=== PATIENT | female | born 1930 | race Caucasian/White ===

== ENCOUNTER 2017-04-04 11:13 | Inpatient (IN) | payer MEDICARE, MEDICAID ==
[~2017-04-04] VITALS: Ht 154.9 cm; Wt 81.6 kg
[~2017-04-04 11:13] MED LIST: ATOR20TA64 PO; CALC-1036 PO; CARB-61 PO; ESCI10TA PO; FERR-57 PO; FOLI-43 PO; FOLI0.8T2 PO; FURO20TA4 PO; INSU100V9 SUBCUT; INSU10VI4 SUBCUT; LEVO88TA5 PO; PREG75CA PO; SODI15OR3 PO
[2017-04-04 11:20] VITALS: BP 132/61; PULSE 67; RESP 20; TEMP 97.8; O2SAT 99
--- NOTE | 2017-04-04 11:27 | NUR ---
Pt placed to ER bed 04. Report given to DARSHANA Hill.
--- NOTE | 2017-04-04 11:27 | NUR ---
Kishor dodge in ED - 04/04/17 at 1136 by TAYLORJ Pt placed to ER bed 03, to jer, report given to DARSHANA Hill.
--- NOTE | 2017-04-04 11:30 | NUR ---
PER PATIENT SHE HAD BEEN HAVING DYSURIA AND ABDOMINAL PAIN 5 DAYS AGO AND DIARRHEA 3 DAYS AGO.DAUGHTER AT BEDSIDE.NO COMPLAIN OF PAIN AT THIS TIME.ABDOMEN IS SOFT;NO DISTENTION.ACTIVE BOWEL SOUNDS THROUGHOUT.NO OTHER COMPLAIN /INJURIES PER PATIENT OR NOTED
[2017-04-04 11:54] LABS: BASOPHILS % (AUTO) 0.2 % (0.0-2.0); EOSINOPHILS # (AUTO) 0.3 K/uL (0.0-0.4); EOSINOPHILS % (AUTO) 3.3 % (0.0-4.0); HEMATOCRIT 31.9 % (36-48); HEMOGLOBIN 10.4 g/dL (12.0-16.0); LYMPHOCYTES # (AUTO) 2.1 K/uL (1.0-5.5); LYMPHOCYTES % (AUTO) 22.4 % (20.5-51.5); MEAN CORPUSCULAR HEMOGLOBIN 30 pg (27-31); MEAN CORPUSCULAR HGB CONC 33 % (32-36); MEAN CORPUSCULAR VOLUME 93 fL (79.0-98.0); MONOCYTES # (AUTO) 0.5 K/uL (0.0-1.0); MONOCYTES % (AUTO) 5.4 % (1.7-9.3); NEUTROPHILS # (AUTO) 6.6 K/uL (1.8-7.7); NEUTROPHILS % (AUTO) 68.7 % (40.0-70.0); PLATELET COUNT (AUTO) 174 K/uL (130-430); RED BLOOD CELL COUNT(AUTO) 3.42 MIL/uL (4.2-6.2); RED CELL DISTRIBUTION WIDTH 13.7 % (9.0-15.0); WHITE BLOOD COUNT (AUTO) 9.5 K/uL (4.8-10.8)
[2017-04-04 12:02] LABS: ANION GAP 4 (5-15); CALCIUM 8.8 mg/dL (8.4-11.0); CHLORIDE 105 mmol/L (98-107); CREATININE 2.44 mg/dL (0.55-1.30); GLUCOSE 260 mg/dL (70-99); POTASSIUM 4.3 mmol/L (3.5-5.1); SODIUM SERUM 139 mmol/L (136-145); UREA NITROGEN, BLOOD 57 mg/dL (8-21)
[2017-04-04 12:06] LABS: ALANINE AMINOTRANSFERASE 11 U/L (12-78); ALBUMIN 3.5 g/dL (3.4-4.8); ASPARTATE AMINOTRANSFERASE 22 U/L (10-37); TOTAL BILIRUBIN 0.4 mg/dL (0.0-1.0); TOTAL PROTEIN, SERUM 7.8 g/dL (6.4-8.3)
--- NOTE | 2017-04-04 12:11 | NUR ---
Report obtained from Megha awaiting Lab work pt updated on plan of care
[2017-04-04 12:49] LABS: BILIRUBIN,URINE NEGATIVE (NEGATIVE); BLOOD, URINE 2+ (NEGATIVE); CLARITY/URINE SL CLOUDY (CLEAR); COLOR,URINE YELLOW (YELLOW); GLUCOSE,URINE NEGATIVE (NEGATIVE); KETONES,URINE NEGATIVE (NEGATIVE); LEUKOCYTE ESTERASE ,URINE 2+ (NEGATIVE); NITRITE, URINE NEGATIVE (NEGATIVE); PH,URINE 5.5 (5.0-8.0); PROTEIN URINE TRACE (NEGATIVE); UROBILINOGEN,URINE 0.2 (0.2-1.0)
[2017-04-04 12:56] LABS: BACTERIA,URINE MODERATE /HPF (None Seen); WBC,URINE 80-100 /HPF (0-3)
--- NOTE | 2017-04-04 13:07 | NUR ---
MICHELLE Stokes at bedside examining patient.
[2017-04-04] MEDS ORDERED: cefTRIAXone 1 GM in D5W 50 ML IV ONE (13:15)
[2017-04-04] MEDS ORDERED: ACETAMINOPHEN 500 MG TABLET PO ONE (13:15)
[2017-04-04] MEDS ORDERED: cefTRIAXone 1 GM VIAL ONE (13:40)
[2017-04-04] MEDS ORDERED: BECL8.7A5 INH (14:23)
[2017-04-04] MEDS ORDERED: PATANOL OP (14:25)
--- NOTE | 2017-04-04 14:30 | NUR ---
Patient will be admitted to [facility]. Admitted to MST unit. Will go to room 135. Belongings list completed. Summary report printed. Report will be given at bedside.
--- NOTE | 2017-04-04 14:40 | NUR ---
Admission Note Received patient from ER with diagnosis of dehydration uti. Initial Plan of Care discussed-patient verbalized understanding. Family at bedside. Oriented to room, call light, pain management and safety.
[2017-04-04 14:50] VITALS: BP 105/39; PULSE 54; RESP 18; TEMP 97.8; O2SAT 97
--- NOTE | 2017-04-04 15:20 | NUR ---
ADMISSION ASSESSMENT PATIENT IS AWAKE ALERT AND ORIENTED, GREEK SPEAKING ONLY. DAUGHTER IS AT BEDSIDE. PATIENT DENIES ANY PAIN WITH PALPATION OF ABDOMEN, LUNGS ARE CLEAR TO BASES, HEART TONES GOOD. NON PITTING BLE EDEMA, OBESE. DENIES ANY PAIN AT THIS TIME. SLIGHT TREMOR NOTED AT REST. DAUGHTER TOOK ALL OF PATIENT'S BELONGINGS HOME, NOTHING PERSONAL AT THE BEDSIDE. CALL LIGHT GIVEN TO PATIENT, INSTRUCTED ON USE AND TO CALL BEFORE ATTEMPTING TO AMBULATE. PATIENT VERBALIZED UNDERSTANDING. SKIN INTACT.
--- NOTE | 2017-04-04 16:18 | NUR ---
PATIENT IS WATCHING TV. NO SIGNS OF DISTRESS. DAUGHTER IS AGAIN AT THE BEDSIDE
[2017-04-04] MEDS ORDERED: LEVOFLOXACIN 500 MG/D5W 100 ML IV ONE (17:30)
[2017-04-04] MEDS ORDERED: DEXTROSE 50% JECT 50 ML DISP.SYRIN IVP PRN (17:30)
[2017-04-04] MEDS ORDERED: ACETAMINOPHEN 325 MG TABLET PO PRN (17:30)
[2017-04-04] MEDS: 0.45% NACL 1,000 ML IV SCH (17:30)
--- NOTE | 2017-04-04 18:50 | NUR ---
GREG ATE 100% OF DINNER, FAMILY REMAINS AT BEDSIDE, DR FORBES IN TO SEE PATIENT. ORDERS GIVEN.
[2017-04-04 19:50] VITALS: BP 136/63; PULSE 62; RESP 18; TEMP 97.8; O2SAT 99
--- NOTE | 2017-04-04 19:50 | NUR ---
INITIAL NOTES: PT IS ALERT AND ORIENTED , TAJIK SPEAKING, ON O2 2L NC AT THIS TIME , DENIED ANY SOB OR DISCOMFORT ; FAMILY AT BEDSIDE ; ASSESSMENT DONE ; FALL AND SAFETY PRECAUTIONS IN PLACE;CALL CLAIRE IN REACH ; INSTRUCTED OPT TO CALL FOR ANY ASSISTANCE .WILL CONTINUE TO MONITOR.
[2017-04-04] MEDS: TETRAHYDROZOLINE OPHTHALMIC DROPS (VISINE) OP SCH (21:00)
--- NOTE | 2017-04-04 21:40 | NUR ---
MEDICATION: DUE MEDS GIVEN ; PT IS COMFORTABLE ; NOT IN ANY ACUTE DISTRESS; WILL CONTINUE TO MONITOR.
[2017-04-04] MEDS: ATORVASTATIN 20 MG TABLET PO SCH (21:44)
[2017-04-04] MEDS: CALCIUM CARBONATE/VITAMIN D3 1 TAB TABLET PO SCH (21:45)
[2017-04-04] MEDS: CARBIDOPA/LEVODOPA 25/100 MG TABLET PO SCH (21:45)
[2017-04-04] MEDS: INSULIN REGULAR, HUMAN 100 UNITS/ML, 10 ML VIAL (novoLIN R) SUBCUT PRN (21:45)
[2017-04-05] VITALS (7 sets, daily range): BP systolic 105–147; BP diastolic 41–80; PULSE 54–65; RESP 16–20; TEMP 96.7–97.7; O2SAT 96–100; Ht 154.9 cm; Wt 81.6 kg
--- NOTE | 2017-04-05 00:10 | NUR ---
RN NOTES: PT IS SLEEPING , NOT IN ANY ACUTE DISTRESS; WILL CONTINUE TO MONITOR.
--- NOTE | 2017-04-05 01:00 | NUR ---
RN NOTES: PT IS AWAKE, O2 SAT IS 97-100%; TRIED TO WEAN THE PT , PT REFUSED , PT STATED SHE IS BEEN ON O2 CONTINUOUSLY FOR THE LAST COUPLE OF YEARS , EDUCATED PT THAT O2 SAT IS GOOD SO WILL SEE HOW IS THE O2 SAT DOING WITHOUT O2 ; PT STARTED GETTING FRUSTRATED ; PT IS NOT HAPPY WHILE REMOVING O2 , PLACED PT BACK ON O2 2L NC . WILL MONITOR PT .
--- NOTE | 2017-04-05 03:34 | NUR ---
RN ROUNDS: PT IS SLEEPING, NOT IN ANY ACUTE DISTRESS; WILL CONTINUE TO MONITOR.
[2017-04-05] MEDS: LEVOTHYROXINE SODIUM 0.088 MG TABLET PO SCH (05:23)
[2017-04-05] MEDS: 0.45% NACL 1,000 ML IV SCH ×3 (05:24→23:13)
--- NOTE | 2017-04-05 06:00 | NUR ---
RN NOTES: PT IS SLEEPING, NOT IN ANY ACUTE DISTRESS; BS 101 , NO INSULIN COVERAGE NEEDED . WILL CONTINUE TO MONITOR PT .
--- NOTE | 2017-04-05 06:54 | NUR ---
CLOSING NOTES: PT IS COMFORTABLE , SLEEPING , NOT IN ANY ACUTE DISTRESS; WILL CONTINUE TO MONITOR AND WILL ENDORSE TO NEXT SHIFT NURSE.
--- NOTE | 2017-04-05 07:35 | NUR ---
Received report from gun numberer nurse, pt resting in bed, no c/o pain, IVF infusing well, call light in reach, will continue to monitor.
[2017-04-05 07:46] LABS: BASOPHILS % (AUTO) 0.4 % (0.0-2.0); EOSINOPHILS # (AUTO) 0.5 K/uL (0.0-0.4); EOSINOPHILS % (AUTO) 5.7 % (0.0-4.0); HEMATOCRIT 30.3 % (36-48); LYMPHOCYTES # (AUTO) 2.2 K/uL (1.0-5.5); MEAN CORPUSCULAR HEMOGLOBIN 32 pg (27-31); MEAN CORPUSCULAR HGB CONC 33 % (32-36); MEAN CORPUSCULAR VOLUME 96 fL (79.0-98.0); MONOCYTES # (AUTO) 0.7 K/uL (0.0-1.0); MONOCYTES % (AUTO) 8.4 % (1.7-9.3); NEUTROPHILS # (AUTO) 4.6 K/uL (1.8-7.7); NEUTROPHILS % (AUTO) 57.5 % (40.0-70.0); PLATELET COUNT (AUTO) 162 K/uL (130-430); RED BLOOD CELL COUNT(AUTO) 3.16 MIL/uL (4.2-6.2); RED CELL DISTRIBUTION WIDTH 13.8 % (9.0-15.0)
[2017-04-05 07:58] LABS: ALANINE AMINOTRANSFERASE 7 U/L (12-78); ANION GAP 3 (5-15); ASPARTATE AMINOTRANSFERASE 22 U/L (10-37); CALCIUM 8.6 mg/dL (8.4-11.0); CHLORIDE 108 mmol/L (98-107); CREATININE 1.89 mg/dL (0.55-1.30); GLUCOSE 104 mg/dL (70-99); POTASSIUM 4.1 mmol/L (3.5-5.1); SODIUM SERUM 140 mmol/L (136-145); THYROID STIMULATING HORMONE 2.77 uIu/mL (0.34-4.82); TOTAL BILIRUBIN 0.4 mg/dL (0.0-1.0); UREA NITROGEN, BLOOD 48 mg/dL (8-21)
[2017-04-05] MEDS ORDERED: ESCITALOPRAM OXALATE 10 MG TABLET PO SCH (09:00)
--- NOTE | 2017-04-05 09:26 | NUR ---
Nutrition Update Patricio Scale 17 noted. Pt admitted for: Dehydration, UTI. Diet: Mechanical Soft diet. BMI: 34 kg/m2. RD to follow per nutrition care standards.
[2017-04-05] MEDS: CITALOPRAM HYDROBROMIDE 20 MG TABLET PO SCH (09:35)
[2017-04-05] MEDS: FERROUS SULFATE 325 MG TABLET.DR PO SCH (09:35)
[2017-04-05] MEDS: CARBIDOPA/LEVODOPA 25/100 MG TABLET PO SCH ×4 (09:35→21:49)
[2017-04-05] MEDS: FOLIC ACID 1 MG TABLET PO SCH (09:35)
[2017-04-05] MEDS: NEPHROVITE, (FOLIC ACID/VITAMIN B COMP W-C 1 TAB) PO SCH (09:35)
[2017-04-05] MEDS: CALCIUM CARBONATE/VITAMIN D3 1 TAB TABLET PO SCH ×2 (09:35→21:49)
--- NOTE | 2017-04-05 09:35 | NUR ---
Pt resting in bed, call light in reach, no pain.
[2017-04-05] MEDS: TETRAHYDROZOLINE OPHTHALMIC DROPS (VISINE) OP SCH ×2 (09:40→21:47)
--- NOTE | 2017-04-05 11:16 | NUR ---
DC PLANNING: Received call from max Potter at [facility] requesting pt. transferring to network if not discharging today. The pt. is capitated to [facility]. The case will be denied of pay if the pt. stayed 2nd night at [facility]. >> Paged dr. Rowe for dcp/order. CM to f/u. Addendum: 04/05/17 at 1149 by Carolyne Grimaldo RN >> LM to dtrs, Orin Edwards and Eduardo Sherman to notify pt. possible transferring to ins. network.-- cm will f/u. Addendum: 04/05/17 at 1536 by Carolyne Grimaldo RN >> Met with dr. Rowe in nursing station, requesting dcp v. dc order per information above. -- stated "he will see the pt. first"-- CM to f/u. Addendum: 04/05/17 at 1617 by Carolyne Grimaldo RN >> 1600: Received transfer order to [facility] from dr. Rowe. Olena was notified and to contact floor nurse at [phone] for further transfer info and arrangement to [facility]. [facility] : after hour (1700 and weekend) contact [facility] #[phone]-- RADHA Addendum: 04/05/17 at 1622 by Carolyne Grimaldo RN >> Together with translator Kapil met with the pt. and dtr at bedside, informed them of the possible transfer to [facility] tonight or as soon as the [facility]'s manager case arranged the transfer . Per dr. Rowe, the pt. will need approximately 2 more days inpt stay. The pt. needs to BS stabiliaztion, URC result, improving BUN/CR level. -- Temo Marquez made aware.
[2017-04-05] MEDS: cefTRIAXone 1 GM IVPB PREMIX 50 ML IV SCH (11:17)
[2017-04-05] MEDS: INSULIN REGULAR, HUMAN 100 UNITS/ML, 10 ML VIAL (novoLIN R) SUBCUT PRN ×3 (11:19→21:52)
--- NOTE | 2017-04-05 11:30 | NUR ---
Rounds Pt resting in bed no c/o pain call light in reach.
--- NOTE | 2017-04-05 13:30 | NUR ---
ROUNDS Pt resting in bed, no distress, IVF infusing well, no distress, call light in reach.
--- NOTE | 2017-04-05 16:11 | NUR ---
VAULT KEEPER NAMED HENRI INFORMED ME PT IS TO BE TRANSFERRED TO [facility] PER HER [employer].
--- NOTE | 2017-04-05 18:35 | NUR ---
CLOSING NOTES Pt resting in bed daughters at bedside, no c/o pain, call light in reach.
--- NOTE | 2017-04-05 21:30 | NUR ---
INITIAL NOTES: RECEIVED REPORT FROM IMAN (INVESTIGATION LIEUTENANT ) .PT IS ALERT AND ORIENTED , TURKISH SPEAKING, ON O2 2L NC AT THIS TIME , DENIED ANY SOB OR DISCOMFORT ; FAMILY AT BEDSIDE ; ASSESSMENT DONE ; FALL AND SAFETY PRECAUTIONS IN PLACE;CALL CLAIRE IN REACH ; INSTRUCTED OPT TO CALL FOR ANY ASSISTANCE .WILL CONTINUE TO MONITOR.
[2017-04-05] MEDS: ATORVASTATIN 20 MG TABLET PO SCH (21:48)
--- NOTE | 2017-04-05 23:00 | NUR ---
RN NOTES: PT CALLED AND ASKED FOR BED MORAN , BED MORAN PROVIDED , PT VOIDED WELL ; PERICARE GIVEN . PT IS COMFORTABLE ; NOT IN ANY ACUTE DISTRESS; WILL CONTINUE TO MONITOR.
--- NOTE | 2017-04-06 01:12 | NUR ---
RN NOTES: PT IS SLEEPING , NOT IN ANY ACUTE DISTRESS; WILL CONTINUE TO MONITOR.
[2017-04-06 01:30] VITALS: BP 93/46; PULSE 67; RESP 18; TEMP 97.7; O2SAT 97
--- NOTE | 2017-04-06 03:00 | NUR ---
NEW IV: NOTICED THAT IV SITE IS SLIGHTLY RED , IV FLUID STOPPED ; INSERTED NEW IV TO THE R HAND 22 G, X 1 ATTEMPT . IV FLUID RESTARTED . OLD IV ACCESS , REMOVED , CATH TIP IS INTACT , DRESSING APPLIED .
[2017-04-06] MEDS: LEVOTHYROXINE SODIUM 0.088 MG TABLET PO SCH (06:01)
[2017-04-06] MEDS: INSULIN REGULAR, HUMAN 100 UNITS/ML, 10 ML VIAL (novoLIN R) SUBCUT PRN ×2 (06:03→13:38)
--- NOTE | 2017-04-06 06:05 | NUR ---
RN NOTES: DUE MEDS GIVEN , BS 184, 2 UNITS OF REGULAR INSULIN GIVEN PER ORDER . PT IS COMFORTABLE .
[2017-04-06 06:07] VITALS: BP 131/63; PULSE 70; RESP 16; TEMP 98.4; O2SAT 100
--- NOTE | 2017-04-06 06:43 | NUR ---
CLOSING NOTES: PT IS COMFORTABLE , SLEEPING , NOT IN ANY ACUTE DISTRESS; WILL CONTINUE TO MONITOR AND WILL ENDORSE TO NEXT SHIFT NURSE.
--- NOTE | 2017-04-06 07:28 | NUR ---
ASSISTED PT ON AND OFF BEDPAN. MEDIUM SOFT GREENISH STOOL AND APPROX 200ML OF YELLOW URINE. CLEANED OF INCONTINENCE. PATIENT GIVEN BREAKFAST TRAY AND REPOSITIONED HERSELF IN BED. PT STATES SHE CANNOT AMBULATE THAT SHE IS TOO WEAK. PT IS ON 2LPM NC 97%O2, DENIES ANY PAIN
[2017-04-06 07:50] LABS: BASOPHILS % (AUTO) 0.5 % (0.0-2.0); EOSINOPHILS # (AUTO) 0.4 K/uL (0.0-0.4); EOSINOPHILS % (AUTO) 4.6 % (0.0-4.0); HEMATOCRIT 30.7 % (36-48); HEMOGLOBIN 10.2 g/dL (12.0-16.0); LYMPHOCYTES # (AUTO) 1.9 K/uL (1.0-5.5); LYMPHOCYTES % (AUTO) 20.7 % (20.5-51.5); MEAN CORPUSCULAR HEMOGLOBIN 31 pg (27-31); MEAN CORPUSCULAR HGB CONC 33 % (32-36); MEAN CORPUSCULAR VOLUME 94 fL (79.0-98.0); MONOCYTES # (AUTO) 0.6 K/uL (0.0-1.0); MONOCYTES % (AUTO) 6.8 % (1.7-9.3); NEUTROPHILS # (AUTO) 6.2 K/uL (1.8-7.7); NEUTROPHILS % (AUTO) 67.4 % (40.0-70.0); PLATELET COUNT (AUTO) 154 K/uL (130-430); RED BLOOD CELL COUNT(AUTO) 3.28 MIL/uL (4.2-6.2); RED CELL DISTRIBUTION WIDTH 13.5 % (9.0-15.0); WHITE BLOOD COUNT (AUTO) 9.1 K/uL (4.8-10.8)
[2017-04-06 08:14] LABS: ANION GAP 4 (5-15); CALCIUM 8.5 mg/dL (8.4-11.0); CHLORIDE 109 mmol/L (98-107); GLUCOSE 200 mg/dL (70-99); POTASSIUM 4.7 mmol/L (3.5-5.1); SODIUM SERUM 139 mmol/L (136-145); UREA NITROGEN, BLOOD 42 mg/dL (8-21)
[2017-04-06 08:18] VITALS: BP 148/58; PULSE 64; RESP 18; TEMP 97.4; O2SAT 97
--- NOTE | 2017-04-06 09:29 | NUR ---
PATIENT ASSISTED TO BEDSIDE COMMODE WITH DARSHANA MANNING. FAMILY IS AT BEDSIDE WATCHING
[2017-04-06] MEDS: 0.45% NACL 1,000 ML IV SCH (09:43)
[2017-04-06] MEDS: FOLIC ACID 1 MG TABLET PO SCH (09:44)
[2017-04-06] MEDS: CITALOPRAM HYDROBROMIDE 20 MG TABLET PO SCH (09:44)
[2017-04-06] MEDS: FERROUS SULFATE 325 MG TABLET.DR PO SCH (09:44)
[2017-04-06] MEDS: NEPHROVITE, (FOLIC ACID/VITAMIN B COMP W-C 1 TAB) PO SCH (09:44)
[2017-04-06] MEDS: CALCIUM CARBONATE/VITAMIN D3 1 TAB TABLET PO SCH (09:44)
[2017-04-06] MEDS: CARBIDOPA/LEVODOPA 25/100 MG TABLET PO SCH ×2 (09:44→13:33)
[2017-04-06] MEDS: TETRAHYDROZOLINE OPHTHALMIC DROPS (VISINE) OP SCH (09:45)
[2017-04-06] MEDS: cefTRIAXone 1 GM IVPB PREMIX 50 ML IV SCH (09:45)
--- NOTE | 2017-04-06 11:13 | NUR ---
DR FORBES IN TO SEE PATIENT
--- NOTE | 2017-04-06 11:22 | NUR ---
DC PLANNING: Called [facility] Phys grp : after hour (1700 and weekend) contact [facility] #[phone]--regading transfer to a contracted hosp. he is requesting our doctor to call their doctor Dr. Larose tel# [phone] for a Peer review. Dr. Rowe called Dr. Larose and endorsed to him that he got the result of the urine culture and he will just discharge the patient to home w/ antibiotic . Maricarmen Morales -daughter of the pt via car installations supervisor-Esthela mena informed her of her mom"s discharge, verbalized understanding.
[2017-04-06 11:40] VITALS: BP 127/87; PULSE 86; RESP 18; TEMP 97.2; O2SAT 97
--- NOTE | 2017-04-06 12:06 | NUR ---
ASSISTED PT TO COMMODE PATIENT ACCIDENTALLY PULLED OUT IV. BLEEDING CONTROLLED, DRESSING APPLIED. BG 252, PATIENT STATES SHE DOESN'T WANT ANY OF HER LUNCH AT THIS TIME. AWAITING ARRIVAL OF DAUGHTERS TO GET PT DRESSED AND GIVE DC INSTRUCTIONS
[2017-04-06 12:24] VITALS: BP 139/50; PULSE 67; RESP 16; TEMP 97; O2SAT 97
--- NOTE | 2017-04-06 12:58 | NUR ---
PATIENT STATES SHE IS GRATEFUL FOR THE CARE WHILE HERE. IS ASKING WHEN HER DAUGHTERS WILL ARRIVE. DAUGHTERS SPOKE W CASE MANAGEMENT AND STATED THEY WOULD BE HERE AROUND 1230. NO FAMILY IS AT BEDSIDE
--- NOTE | 2017-04-06 13:50 | NUR ---
DAUGHTERS AT BEDSIDE. DC INSTRUCTIONS AND FOLLOW UP CARE EXPLAINED TO PATIENT AND DAUGHTERS WITH PANAMANIAN SPEAKING RN, DEE. FAMILY AND PATIENT VERBALIZED UNDERSTANDING OF MEDICATIONS AND FOLLOW UP INSTRUCTIONS. TWO PRESCRIPTIONS GIVEN AND INFORMATION HAND-OUTS REGARDING MEDS GIVEN WELL. PATIENT BELONGINGS ALL ACCOUNTED FOR AND SENT HOME WITH PATIENT. PATIENT TAKEN TO PRIVATE AUTO VIA WHEELCHAIR.
--- NOTE | 2017-04-10 15:49 | NUR ---
MOBILE BATTERY TECHNICIAN called pt ([phone]) and pt's dtr, Carmen, answered the phone. Pt's dtr states that pt is doing well; pt's prescriptions have been filled; there are no questions regarding discharge or medication instructions; pt has a PCP follow up appointment scheduled for 04/15/17; pt checks her blood sugar as directed by PCP. Pt's dtr did not express any other needs or concerns and denied the need for additional follow up at this time. No further follow up phone calls required at this time.
== END 2017-04-06 13:50 | disposition home or self-care (01) | DRG 682 ==
LOC: SED 11:15 → SMU 14:08
PROVIDERS: ADMIT Internal Medicine; ATTEND Internal Medicine
DX: N17.0 Acute kidney failure with tubular necrosis (principal); G93.41 Metabolic encephalopathy; N39.0 Urinary tract infection, site not specified; N18.9 Chronic kidney disease, unspecified; I12.9 Hypertensive chronic kidney disease with stage 1 through stage 4 chronic kidney disease, or unspecified chronic kidney disease; E86.0 Dehydration; E11.22 Type 2 diabetes mellitus with diabetic chronic kidney disease; D63.8 Anemia in other chronic diseases classified elsewhere; E11.21 Type 2 diabetes mellitus with diabetic nephropathy; E11.65 Type 2 diabetes mellitus with hyperglycemia; E66.9 Obesity, unspecified; Z79.4 Long term (current) use of insulin; Z68.34 Body mass index [BMI] 34.0-34.9, adult
CPT/HCPCS: 36415; 80048; 80053; 81000-TC; 82962; 83036; 84443-TC; 85025; 87040-TC; 87086; 87186-TC; 96365; 97116-GP; 99285; J0696; J1815; J1956; J7060

== ENCOUNTER 2017-11-15 16:44 | Emergency (ER) | payer MEDICARE, MEDICAID ==
[~2017-11-15] VITALS: Ht 160 cm; Wt 81.6 kg
[~2017-11-15 16:44] MED LIST changes: +BECL8.7A5 INH; +PATANOL OP
[2017-11-15 17:11] VITALS: BP_SYST 161
--- NOTE | 2017-11-15 17:21 | NUR ---
Patient triaged and placed in waiting room. VSS and patient appears in no acute distress at this time. Accompanied by FAMILY, awaiting available bed, and MD notified of need for MSE.
--- NOTE | 2017-11-15 19:58 | NUR ---
PT AMBULATORY TO BED 7 WITH FAMILY FOR EVAL
--- NOTE | 2017-11-15 20:00 | NUR ---
Patient arrived to ED a/o x 4 with c/o N/V x 3 days. Patient c/o persistent N/V. Reports 05/20 ABD pain. Patient afebrile. Skin warm and dry. Tremors noted. Denies SOB or CP. No ABD distention noted. Will continue to monitor.
--- NOTE | 2017-11-15 20:25 | NUR ---
ED MD Pemberton at bedside for medical evaluation.
[2017-11-15] MEDS ORDERED: NACL 0.9% 1,000 ML IV ONE (20:30)
[2017-11-15] MEDS ORDERED: ONDANSETRON HCL 4 MG/2 ML VIAL IVP ONE ×2 (20:30→23:30)
[2017-11-15 20:54] LABS: BASOPHILS % (AUTO) 0.4 % (0.0-2.0); EOSINOPHILS # (AUTO) 0.1 K/uL (0.0-0.4); EOSINOPHILS % (AUTO) 1.1 % (0.0-4.0); HEMATOCRIT 34.9 % (36-48); HEMOGLOBIN 11.6 g/dL (12.0-16.0); LYMPHOCYTES # (AUTO) 2.8 K/uL (1.0-5.5); LYMPHOCYTES % (AUTO) 29.6 % (20.5-51.5); MEAN CORPUSCULAR HEMOGLOBIN 31 pg (27-31); MEAN CORPUSCULAR HGB CONC 33 % (32-36); MEAN CORPUSCULAR VOLUME 92 fL (79.0-98.0); MONOCYTES # (AUTO) 0.6 K/uL (0.0-1.0); MONOCYTES % (AUTO) 6.3 % (1.7-9.3); NEUTROPHILS # (AUTO) 5.9 K/uL (1.8-7.7); NEUTROPHILS % (AUTO) 62.6 % (40.0-70.0); PLATELET COUNT (AUTO) 219 K/uL (130-430); RED CELL DISTRIBUTION WIDTH 14.3 % (9.0-15.0); WHITE BLOOD COUNT (AUTO) 9.4 K/uL (4.8-10.8)
[2017-11-15 21:07] LABS: ALANINE AMINOTRANSFERASE 13 U/L (12-78); ALBUMIN 4.1 g/dL (3.4-4.8); ANION GAP 7 (5-15); ASPARTATE AMINOTRANSFERASE 34 U/L (10-37); CALCIUM 10.4 mg/dL (8.4-11.0); CHLORIDE 99 mmol/L (98-107); CREATININE 1.92 mg/dL (0.55-1.30); GLUCOSE 147 mg/dL (70-99); POTASSIUM 3.9 mmol/L (3.5-5.1); SODIUM SERUM 137 mmol/L (136-145); TOTAL BILIRUBIN 0.5 mg/dL (0.0-1.0)
[2017-11-15 21:17] LABS: UREA NITROGEN, BLOOD 27 mg/dL (8-21)
--- NOTE | 2017-11-15 21:39 | NUR ---
Medicated per MD orders. IVF infusing with no s/s of infiltration at this time. Will cont to monitor
[2017-11-15 21:51] LABS: BILIRUBIN,URINE NEGATIVE (NEGATIVE); CLARITY/URINE CLEAR (CLEAR); COLOR,URINE YELLOW (YELLOW); GLUCOSE,URINE NEGATIVE (NEGATIVE); KETONES,URINE NEGATIVE (NEGATIVE); LEUKOCYTE ESTERASE ,URINE NEGATIVE (NEGATIVE); NITRITE, URINE NEGATIVE (NEGATIVE); PROTEIN URINE TRACE (NEGATIVE); UROBILINOGEN,URINE 0.2 (0.2-1.0)
[2017-11-15 22:11] LABS: BLOOD, URINE TRACE (NEGATIVE)
[2017-11-15 22:12] LABS: BACTERIA,URINE FEW /HPF (None Seen); MUCUS,URINE None Seen /LPF (None Seen); RBC,URINE 0-3 /HPF (0-3); WBC,URINE 0-3 /HPF (0-3)
--- NOTE | 2017-11-15 23:40 | NUR ---
ED MD Pemberton at bedside reassessing patient.
--- NOTE | 2017-11-16 00:04 | NUR ---
Patient given written and verbal discharge instructions and verbalizes understanding. ER MD discussed with patient the results and treatment provided. Patient in stable condition. ID arm band removed. IV catheter removed intact and dressing applied, no active bleeding. Rx of Naproxen and Zofran given. Patient educated on pain management and to follow up with PMD. Pain Scale 2/10 tolerable for patient. Opportunity for questions provided and answered.
[2017-11-16 05:55] VITALS: BP_SYST 148
== END 2017-11-16 00:04 | disposition home or self-care (01) ==
LOC: SED 16:44
DX: B34.9 Viral infection, unspecified (principal); R53.1 Weakness; D64.9 Anemia, unspecified; R79.89 Other specified abnormal findings of blood chemistry; I13.0 Hypertensive heart and chronic kidney disease with heart failure and stage 1 through stage 4 chronic kidney disease, or unspecified chronic kidney disease; E11.22 Type 2 diabetes mellitus with diabetic chronic kidney disease; N18.9 Chronic kidney disease, unspecified; I50.9 Heart failure, unspecified; Z79.4 Long term (current) use of insulin
CPT/HCPCS: 36415; 71045; 80053; 81000; 83880; 85025; 86710; 93005; 96361; 96374; 96376; 99285; J2405; J7030

== ENCOUNTER 2018-10-07 23:17 | Emergency (ER) | payer MEDICARE, MEDICAID ==
[~2018-10-07] VITALS: Ht 160 cm; Wt 79.4 kg
[~2018-10-07 23:17] MED LIST changes: -PATANOL OP; -SODI15OR3 PO
[2018-10-07 23:28] VITALS: BP_SYST 150
--- NOTE | 2018-10-07 23:35 | NUR ---
Patient to ER bed 6 to gown for evaluation. Side rails up. Report given to DARSHANA Lee.
--- NOTE | 2018-10-07 23:40 | NUR ---
Pt is awake and alert. Family at bedside. Pt C/O right sided front and back skin rash that started 3 days ago. Skin appears red and blotchy, skin intact. Pain stated 810. No other complaints at this time. Will continue to monitor.
[2018-10-07] MEDS ORDERED: KETOROLAC TROMETHAMINE 60 MG/2 ML VIAL IM ONE (23:45)
--- NOTE | 2018-10-07 23:45 | NUR ---
ER MD SARKAR AT BEDSIDE EXAMINING PATIENT.
[2018-10-08] MEDS: HYDROcodone/ACETAMIN 5-325 MG TAB (NORCO/ VICODIN) PO ONE ×2 (00:03→00:06)
[2018-10-08] MEDS ORDERED: INSU100V SQ (00:13)
[2018-10-08] MEDS ORDERED: PREG75CA PO (00:13)
[2018-10-08] MEDS ORDERED: OMEG1CAP75 PO (00:13)
[2018-10-08] MEDS ORDERED: FURO-149 PO (00:13)
[2018-10-08] MEDS ORDERED: FERR-31 PO (00:13)
[2018-10-08] MEDS ORDERED: ACET-2634 PO (00:13)
[2018-10-08] MEDS ORDERED: MULT-1117 PO (00:13)
[2018-10-08] MEDS ORDERED: KAY15 PO (00:13)
[2018-10-08] MEDS ORDERED: FOLI-43 PO (00:13)
[2018-10-08] MEDS ORDERED: CARB1TAB21 PO (00:13)
[2018-10-08] MEDS ORDERED: LEVO88TA5 PO (00:13)
[2018-10-08] MEDS ORDERED: ALBU8.5H8 INH (00:13)
[2018-10-08] MEDS ORDERED: INSU100V9 SQ (00:13)
[2018-10-08] MEDS ORDERED: ESCI10TA54 PO (00:13)
[2018-10-08] MEDS ORDERED: CALC-939 PO (00:13)
[2018-10-08] MEDS ORDERED: ASPI-859 PO (00:13)
[2018-10-08 00:45] VITALS: BP_SYST 145
--- NOTE | 2018-10-08 00:45 | NUR ---
Patient given written and verbal discharge instructions and verbalizes understanding. ER MD Begum discussed with patient the results and treatment provided. Patient in stable condition. ID arm band removed. Rx of Rankin, Motrin and Acyclovir given. Patient educated on pain management and to follow up with PMD. Pain Scale 2/10. Opportunity for questions provided and answered. Medication side effect fact sheet provided.
== END 2018-10-08 00:45 | disposition home or self-care (01) ==
LOC: SED 23:17
DX: B02.9 Zoster without complications (principal); E11.22 Type 2 diabetes mellitus with diabetic chronic kidney disease; I13.0 Hypertensive heart and chronic kidney disease with heart failure and stage 1 through stage 4 chronic kidney disease, or unspecified chronic kidney disease; N18.9 Chronic kidney disease, unspecified; I50.20 Unspecified systolic (congestive) heart failure; E78.00 Pure hypercholesterolemia, unspecified; G20 Parkinson's disease; Z79.899 Other long term (current) drug therapy
CPT/HCPCS: 96372; 99283; J1885

== ENCOUNTER 2018-11-01 19:34 | Inpatient (IN) | payer MEDICARE, MEDICAID ==
[~2018-11-01] VITALS: Ht 160 cm; Wt 73.9 kg
[2018-11-01 19:34] VITALS: BP_SYST 172
[~2018-11-01 19:34] MED LIST changes: +ACET-2634 PO; +ALBU8.5H8 INH; +ASPI-859 PO; +CALC-939 PO; +CARB1TAB21 PO; +ESCI10TA54 PO; +FERR-31 PO; +FURO-149 PO; +INSU100V SQ; +INSU100V9 SQ; -INSU100V9 SUBCUT; -INSU10VI4 SUBCUT; +KAY15 PO; +MULT-1117 PO; +OMEG1CAP75 PO
[2018-11-01] MEDS ORDERED: cefTRIAXone 1 GM IVPB PREMIX 50 ML IV ONE (20:45)
[2018-11-01 20:53] LABS: BILIRUBIN,URINE NEGATIVE (NEGATIVE); BLOOD, URINE TRACE (NEGATIVE); CLARITY/URINE CLEAR (CLEAR); COLOR,URINE YELLOW (YELLOW); GLUCOSE,URINE TRACE (NEGATIVE); KETONES,URINE NEGATIVE (NEGATIVE); LEUKOCYTE ESTERASE ,URINE NEGATIVE (NEGATIVE); NITRITE, URINE NEGATIVE (NEGATIVE); PROTEIN URINE 1+ (NEGATIVE); UROBILINOGEN,URINE 0.2 (0.2-1.0)
[2018-11-01 21:00] LABS: BACTERIA,URINE FEW /HPF (None Seen); MUCUS,URINE None Seen /LPF (None Seen); RBC,URINE 0-3 /HPF (0-3); WBC,URINE 0-3 /HPF (0-3)
[2018-11-01 21:02] LABS: BASOPHILS % (AUTO) 0.2 % (0.0-2.0); EOSINOPHILS # (AUTO) 0.3 K/uL (0.0-0.4); EOSINOPHILS % (AUTO) 3.1 % (0.0-4.0); HEMATOCRIT 28.6 % (36-48); HEMOGLOBIN 9.3 g/dL (12.0-16.0); LYMPHOCYTES # (AUTO) 2.1 K/uL (1.0-5.5); MEAN CORPUSCULAR HEMOGLOBIN 31 pg (27-31); MEAN CORPUSCULAR HGB CONC 33 % (32-36); MEAN CORPUSCULAR VOLUME 95 fL (79.0-98.0); MONOCYTES # (AUTO) 0.6 K/uL (0.0-1.0); MONOCYTES % (AUTO) 5.9 % (1.7-9.3); NEUTROPHILS # (AUTO) 6.4 K/uL (1.8-7.7); NEUTROPHILS % (AUTO) 68.8 % (40.0-70.0); PLATELET COUNT (AUTO) 179 K/uL (130-430); RED BLOOD CELL COUNT(AUTO) 3.01 MIL/uL (4.2-6.2); RED CELL DISTRIBUTION WIDTH 16.7 % (9.0-15.0); WHITE BLOOD COUNT (AUTO) 9.4 K/uL (4.8-10.8)
[2018-11-01 21:18] LABS: ANION GAP 4 (5-15); CALCIUM 8.8 mg/dL (8.4-11.0); CHLORIDE 102 mmol/L (98-107); CREATININE 2.35 mg/dL (0.55-1.30); GLUCOSE 254 mg/dL (70-99); POTASSIUM 5.4 mmol/L (3.5-5.1); SODIUM SERUM 140 mmol/L (136-145); UREA NITROGEN, BLOOD 56 mg/dL (8-21)
[2018-11-01 21:24] LABS: ALANINE AMINOTRANSFERASE 9 U/L (12-78); ASPARTATE AMINOTRANSFERASE 22 U/L (10-37); TOTAL BILIRUBIN 0.3 mg/dL (0.0-1.0)
[2018-11-01 21:38] LABS: PROTHROMBIN TIME 9.9 SECS (9.5-12.5)
[2018-11-01 22:00] VITALS: BP_SYST 172
[2018-11-01] MEDS ORDERED: PREG75CA PO (22:02)
[2018-11-01] MEDS ORDERED: BECL10.62 IH (22:02)
[2018-11-01] MEDS ORDERED: 0.45% NACL 1,000 ML IV SCH (23:30)
[2018-11-01] MEDS ORDERED: metroNIDAZOLE 500 mg/NS 100 ML IV ONE (23:30)
[2018-11-01] MEDS ORDERED: ONDANSETRON HCL 4 MG/2 ML VIAL IVP PRN (23:30)
[2018-11-02] VITALS (7 sets, daily range): BP systolic 135–175
[2018-11-02] MEDS ORDERED: ACETAMINOPHEN 325 MG TABLET PO SCH (01:00)
[2018-11-02] MEDS ORDERED: LEVOFLOXACIN 500 MG/D5W 100 ML IV SCH (01:00)
[2018-11-02] MEDS ORDERED: LEVOFLOXACIN 500 MG/D5W 100 ML IV ONE (01:14)
[2018-11-02] MEDS ORDERED: DEXTROSE 50% JECT 50 ML DISP.SYRIN IVP PRN ×2 (02:15)
[2018-11-02] MEDS ORDERED: metroNIDAZOLE 500 mg/NS 100 ML IV ONE (03:14)
[2018-11-02] MEDS: metroNIDAZOLE 500 mg/NS 100 ML IV SCH ×3 (05:16→22:35)
[2018-11-02] MEDS: INSULIN REGULAR, HUMAN 100 UNITS/ML, 10 ML VIAL (novoLIN R) SUBCUT PRN ×4 (06:18→21:36)
[2018-11-02 08:11] LABS: BASOPHILS # (AUTO) 0.1 K/uL (0.0-0.2); BASOPHILS % (AUTO) 0.6 % (0.0-2.0); EOSINOPHILS # (AUTO) 0.3 K/uL (0.0-0.4); EOSINOPHILS % (AUTO) 3.6 % (0.0-4.0); HEMATOCRIT 27.5 % (36-48); LYMPHOCYTES # (AUTO) 2.2 K/uL (1.0-5.5); LYMPHOCYTES % (AUTO) 24.2 % (20.5-51.5); MEAN CORPUSCULAR HEMOGLOBIN 31 pg (27-31); MEAN CORPUSCULAR HGB CONC 33 % (32-36); MEAN CORPUSCULAR VOLUME 95 fL (79.0-98.0); MONOCYTES # (AUTO) 0.5 K/uL (0.0-1.0); MONOCYTES % (AUTO) 5.5 % (1.7-9.3); NEUTROPHILS % (AUTO) 66.1 % (40.0-70.0); PLATELET COUNT (AUTO) 164 K/uL (130-430); RED CELL DISTRIBUTION WIDTH 16.2 % (9.0-15.0); WHITE BLOOD COUNT (AUTO) 9.1 K/uL (4.8-10.8)
[2018-11-02 08:25] LABS: ANION GAP 3 (5-15); CALCIUM 8.8 mg/dL (8.4-11.0); CHLORIDE 104 mmol/L (98-107); CREATININE 2.11 mg/dL (0.55-1.30); GLUCOSE 167 mg/dL (70-99); POTASSIUM 5.1 mmol/L (3.5-5.1); SODIUM SERUM 140 mmol/L (136-145); UREA NITROGEN, BLOOD 51 mg/dL (8-21)
[2018-11-02] MEDS: ENOXAPARIN SODIUM 30 MG/0.3 ML SYRINGE SUBCUT SCH (08:28)
[2018-11-02 08:30] LABS: ALANINE AMINOTRANSFERASE 11 U/L (12-78); ALBUMIN 2.7 g/dL (3.4-4.8); ASPARTATE AMINOTRANSFERASE 19 U/L (10-37); TOTAL BILIRUBIN 0.3 mg/dL (0.0-1.0)
[2018-11-02] MEDS: IPRATROPIUM/ALBUTEROL SULFATE 3 ML AMPUL.NEB (DUONEB) INH PRN ×2 (11:20→16:51)
[2018-11-02] MEDS: ENALAPRILAT DIHYDRATE 1.25 MG/ML VIAL IVP PRN ×2 (12:22→16:42)
[2018-11-02] MEDS ORDERED: FUROSEMIDE 20 MG/2 ML VIAL IVP ONE (12:30)
[2018-11-02] MEDS ORDERED: ENALAPRILAT DIHYDRATE 1.25 MG/ML VIAL IVP ONE (18:30)
[2018-11-02] MEDS: LEVOFLOXACIN 250 MG/D5W 50 ML IV SCH (21:30)
[2018-11-03] MEDS: metroNIDAZOLE 500 mg/NS 100 ML IV SCH (06:42)
[2018-11-03] MEDS: INSULIN REGULAR, HUMAN 100 UNITS/ML, 10 ML VIAL (novoLIN R) SUBCUT PRN ×4 (06:46→23:48)
[2018-11-03 07:06] LABS: BASOPHILS % (AUTO) 0.1 % (0.0-2.0); EOSINOPHILS # (AUTO) 0.3 K/uL (0.0-0.4); EOSINOPHILS % (AUTO) 2.6 % (0.0-4.0); HEMOGLOBIN 9.8 g/dL (12.0-16.0); LYMPHOCYTES # (AUTO) 3.1 K/uL (1.0-5.5); LYMPHOCYTES % (AUTO) 24.4 % (20.5-51.5); MEAN CORPUSCULAR HEMOGLOBIN 32 pg (27-31); MEAN CORPUSCULAR HGB CONC 33 % (32-36); MEAN CORPUSCULAR VOLUME 96 fL (79.0-98.0); MONOCYTES # (AUTO) 0.7 K/uL (0.0-1.0); MONOCYTES % (AUTO) 5.7 % (1.7-9.3); NEUTROPHILS # (AUTO) 8.7 K/uL (1.8-7.7); NEUTROPHILS % (AUTO) 67.2 % (40.0-70.0); PLATELET COUNT (AUTO) 187 K/uL (130-430); RED BLOOD CELL COUNT(AUTO) 3.12 MIL/uL (4.2-6.2); RED CELL DISTRIBUTION WIDTH 16.6 % (9.0-15.0); WHITE BLOOD COUNT (AUTO) 12.8 K/uL (4.8-10.8)
[2018-11-03 07:30] VITALS: BP_SYST 166
[2018-11-03 08:04] LABS: ALANINE AMINOTRANSFERASE 23 U/L (12-78); ALBUMIN 2.9 g/dL (3.4-4.8); ANION GAP 6 (5-15); ASPARTATE AMINOTRANSFERASE 19 U/L (10-37); CALCIUM 8.7 mg/dL (8.4-11.0); CHLORIDE 103 mmol/L (98-107); CREATININE 2.35 mg/dL (0.55-1.30); GLUCOSE 163 mg/dL (70-99); POTASSIUM 4.9 mmol/L (3.5-5.1); SODIUM SERUM 140 mmol/L (136-145); TOTAL BILIRUBIN 0.4 mg/dL (0.0-1.0); UREA NITROGEN, BLOOD 46 mg/dL (8-21)
[2018-11-03] MEDS ORDERED: FUROSEMIDE 40 MG/4 ML VIAL IVP ONE (08:15)
[2018-11-03] MEDS: ENOXAPARIN SODIUM 30 MG/0.3 ML SYRINGE SUBCUT SCH (08:17)
[2018-11-03] MEDS: LISINOPRIL 5 MG TABLET PO SCH (08:19)
[2018-11-03] MEDS: ENALAPRILAT DIHYDRATE 1.25 MG/ML VIAL IVP PRN (08:19)
[2018-11-03] MEDS ORDERED: methylPREDNISolone SOD SUCC 40 MG/ML VIAL IVP SCH (09:00)
[2018-11-03] MEDS ORDERED: POTASSIUM CHLORIDE 8 MEQ TABLET.SA PO SCH (09:00)
[2018-11-03 12:37] VITALS: BP_SYST 150
[2018-11-03 16:19] VITALS: BP_SYST 131
[2018-11-03] MEDS ORDERED: MONTELUKAST 10 MG TABLET PO SCH (18:00)
[2018-11-03 20:00] VITALS: BP_SYST 138
[2018-11-03] MEDS: FUROSEMIDE 20 MG/2 ML VIAL IVP SCH (21:18)
[2018-11-03] MEDS: LEVOFLOXACIN 250 MG/D5W 50 ML IV SCH (21:18)
[2018-11-04] VITALS (7 sets, daily range): BP systolic 124–167
[2018-11-04] MEDS: INSULIN REGULAR, HUMAN 100 UNITS/ML, 10 ML VIAL (novoLIN R) SUBCUT PRN ×4 (06:18→20:17)
[2018-11-04 07:09] LABS: BASOPHILS % (AUTO) 0.4 % (0.0-2.0); EOSINOPHILS # (AUTO) 0.1 K/uL (0.0-0.4); EOSINOPHILS % (AUTO) 0.9 % (0.0-4.0); HEMOGLOBIN 9.8 g/dL (12.0-16.0); LYMPHOCYTES # (AUTO) 1.9 K/uL (1.0-5.5); LYMPHOCYTES % (AUTO) 19.1 % (20.5-51.5); MEAN CORPUSCULAR HEMOGLOBIN 31 pg (27-31); MEAN CORPUSCULAR HGB CONC 33 % (32-36); MEAN CORPUSCULAR VOLUME 95 fL (79.0-98.0); MONOCYTES # (AUTO) 0.6 K/uL (0.0-1.0); MONOCYTES % (AUTO) 6.2 % (1.7-9.3); NEUTROPHILS # (AUTO) 7.5 K/uL (1.8-7.7); NEUTROPHILS % (AUTO) 73.4 % (40.0-70.0); PLATELET COUNT (AUTO) 197 K/uL (130-430); RED BLOOD CELL COUNT(AUTO) 3.17 MIL/uL (4.2-6.2); RED CELL DISTRIBUTION WIDTH 16.9 % (9.0-15.0); WHITE BLOOD COUNT (AUTO) 10.1 K/uL (4.8-10.8)
[2018-11-04 07:15] LABS: ALANINE AMINOTRANSFERASE 23 U/L (12-78); ALBUMIN 2.6 g/dL (3.4-4.8); ANION GAP 5 (5-15); ASPARTATE AMINOTRANSFERASE 15 U/L (10-37); CALCIUM 8.3 mg/dL (8.4-11.0); CHLORIDE 102 mmol/L (98-107); CREATININE 2.48 mg/dL (0.55-1.30); GLUCOSE 209 mg/dL (70-99); POTASSIUM 4.7 mmol/L (3.5-5.1); SODIUM SERUM 141 mmol/L (136-145); TOTAL BILIRUBIN 0.4 mg/dL (0.0-1.0); UREA NITROGEN, BLOOD 54 mg/dL (8-21)
[2018-11-04] MEDS: FUROSEMIDE 20 MG/2 ML VIAL IVP SCH ×2 (08:25→20:13)
[2018-11-04] MEDS: LISINOPRIL 5 MG TABLET PO SCH (08:25)
[2018-11-04] MEDS: ENOXAPARIN SODIUM 30 MG/0.3 ML SYRINGE SUBCUT SCH (08:26)
[2018-11-04] MEDS: ENALAPRILAT DIHYDRATE 1.25 MG/ML VIAL IVP PRN (11:29)
[2018-11-04] MEDS: CARBIDOPA/LEVODOPA 25/100 MG TABLET PO SCH ×2 (17:24→20:13)
[2018-11-04] MEDS: LEVOFLOXACIN 250 MG/D5W 50 ML IV SCH (20:12)
[2018-11-05] VITALS (8 sets, daily range): BP systolic 138–169
[2018-11-05] MEDS: INSULIN REGULAR, HUMAN 100 UNITS/ML, 10 ML VIAL (novoLIN R) SUBCUT PRN ×4 (06:08→23:39)
[2018-11-05 07:28] LABS: ANION GAP 7 (5-15); CALCIUM 8.1 mg/dL (8.4-11.0); CHLORIDE 100 mmol/L (98-107); CREATININE 2.34 mg/dL (0.55-1.30); GLUCOSE 250 mg/dL (70-99); POTASSIUM 4.1 mmol/L (3.5-5.1); SODIUM SERUM 141 mmol/L (136-145); UREA NITROGEN, BLOOD 49 mg/dL (8-21)
[2018-11-05] MEDS ORDERED: MILK OF MAGNESIA 30 ML UDC PO PRN (08:15)
[2018-11-05] MEDS: CITALOPRAM HYDROBROMIDE 20 MG TABLET PO SCH (08:57)
[2018-11-05] MEDS: LISINOPRIL 5 MG TABLET PO SCH (08:57)
[2018-11-05] MEDS: FOLIC ACID 1 MG TABLET PO SCH (08:57)
[2018-11-05] MEDS: PREGABALIN 75 MG CAPSULE (LYRICA) PO SCH ×2 (08:57→23:31)
[2018-11-05] MEDS: FUROSEMIDE 20 MG/2 ML VIAL IVP SCH ×2 (08:58→23:33)
[2018-11-05] MEDS: CARBIDOPA/LEVODOPA 25/100 MG TABLET PO SCH ×4 (08:58→23:32)
[2018-11-05] MEDS: ENOXAPARIN SODIUM 30 MG/0.3 ML SYRINGE SUBCUT SCH (08:59)
[2018-11-05] MEDS: ENALAPRILAT DIHYDRATE 1.25 MG/ML VIAL IVP PRN (14:28)
[2018-11-05] MEDS ORDERED: ATORVASTATIN 20 MG TABLET PO SCH (21:00)
[2018-11-05] MEDS ORDERED: INSULIN GLARGINE HUM REC ANLOG 40 UNIT SQ SCH (21:00)
[2018-11-05] MEDS: LEVOFLOXACIN 250 MG/D5W 50 ML IV SCH (23:32)
[2018-11-06] VITALS: BP_SYST 141; BP_SYST 163
[2018-11-06] MEDS ORDERED: LEVOTHYROXINE SODIUM 0.088 MG TABLET PO SCH (06:00)
[2018-11-06 06:49] LABS: BASOPHILS % (AUTO) 0.3 % (0.0-2.0); EOSINOPHILS # (AUTO) 0.4 K/uL (0.0-0.4); EOSINOPHILS % (AUTO) 4.9 % (0.0-4.0); HEMATOCRIT 36.3 % (36-48); HEMOGLOBIN 11.7 g/dL (12.0-16.0); LYMPHOCYTES % (AUTO) 21.9 % (20.5-51.5); MEAN CORPUSCULAR HEMOGLOBIN 30 pg (27-31); MEAN CORPUSCULAR HGB CONC 32 % (32-36); MEAN CORPUSCULAR VOLUME 94 fL (79.0-98.0); MONOCYTES # (AUTO) 0.5 K/uL (0.0-1.0); MONOCYTES % (AUTO) 5.9 % (1.7-9.3); NEUTROPHILS # (AUTO) 6.2 K/uL (1.8-7.7); PLATELET COUNT (AUTO) 207 K/uL (130-430); RED BLOOD CELL COUNT(AUTO) 3.87 MIL/uL (4.2-6.2); RED CELL DISTRIBUTION WIDTH 16.5 % (9.0-15.0); WHITE BLOOD COUNT (AUTO) 9.1 K/uL (4.8-10.8)
[2018-11-06 07:06] LABS: ANION GAP 5 (5-15); CALCIUM 8.8 mg/dL (8.4-11.0); CHLORIDE 99 mmol/L (98-107); CREATININE 2.47 mg/dL (0.55-1.30); GLUCOSE 122 mg/dL (70-99); POTASSIUM 3.8 mmol/L (3.5-5.1); SODIUM SERUM 139 mmol/L (136-145); UREA NITROGEN, BLOOD 55 mg/dL (8-21)
[2018-11-06 08:00] VITALS: BP_SYST 119
[2018-11-06] MEDS ORDERED: FUROSEMIDE 40 MG TABLET PO SCH (09:00)
[2018-11-06] MEDS: CARBIDOPA/LEVODOPA 25/100 MG TABLET PO SCH (09:09)
[2018-11-06] MEDS: CITALOPRAM HYDROBROMIDE 20 MG TABLET PO SCH (09:09)
[2018-11-06] MEDS: FOLIC ACID 1 MG TABLET PO SCH (09:10)
[2018-11-06] MEDS: LISINOPRIL 5 MG TABLET PO SCH (09:10)
[2018-11-06] MEDS: PREGABALIN 75 MG CAPSULE (LYRICA) PO SCH (09:10)
[2018-11-06] MEDS: ENOXAPARIN SODIUM 30 MG/0.3 ML SYRINGE SUBCUT SCH (09:16)
[2018-11-06 11:10] VITALS: BP_SYST 124
[2018-11-06] MEDS: INSULIN REGULAR, HUMAN 100 UNITS/ML, 10 ML VIAL (novoLIN R) SUBCUT PRN (11:57)
[2018-11-06 12:56] VITALS: BP_SYST 113
== END 2018-11-06 14:05 | disposition home or self-care (01) | DRG 291 ==
LOC: SED 19:34 → STU 23:19 → SMU 11-04 10:37
PROVIDERS: ADMIT Internal Medicine; ATTEND Internal Medicine
DX: I13.0 Hypertensive heart and chronic kidney disease with heart failure and stage 1 through stage 4 chronic kidney disease, or unspecified chronic kidney disease (principal); J96.22 Acute and chronic respiratory failure with hypercapnia; J18.9 Pneumonia, unspecified organism; I50.31 Acute diastolic (congestive) heart failure; J44.0 Chronic obstructive pulmonary disease with (acute) lower respiratory infection; J44.1 Chronic obstructive pulmonary disease with (acute) exacerbation; N18.4 Chronic kidney disease, stage 4 (severe); J96.10 Chronic respiratory failure, unspecified whether with hypoxia or hypercapnia; E11.22 Type 2 diabetes mellitus with diabetic chronic kidney disease; G20 Parkinson's disease; E03.9 Hypothyroidism, unspecified; E78.5 Hyperlipidemia, unspecified; F03.90 Unspecified dementia, unspecified severity, without behavioral disturbance, psychotic disturbance, mood disturbance, and anxiety; G47.33 Obstructive sleep apnea (adult) (pediatric); I27.81 Cor pulmonale (chronic); E66.9 Obesity, unspecified; I27.29 Other secondary pulmonary hypertension; Z79.4 Long term (current) use of insulin; Z82.0 Family history of epilepsy and other diseases of the nervous system; Z83.3 Family history of diabetes mellitus; Z90.49 Acquired absence of other specified parts of digestive tract; Z79.899 Other long term (current) drug therapy; Z68.28 Body mass index [BMI] 28.0-28.9, adult; Z99.81 Dependence on supplemental oxygen
CPT/HCPCS: 36415; 36600; 71045; 76770; 80048; 80053; 81000-TC; 82803-TC; 82962; 83605; 83880; 84484; 85025; 85610-TC; 85730-TC; 87040-TC; 87086; 92610-GN; 93005; 93306; 94640; 94760; 96365; 97110-GP; 97116-GP; 97163; 97530-GP; 99285; G0378; J0696; J1030; J1650; J1815; J1940; J1956; J2405; J3490; J7620

== ENCOUNTER 2018-11-23 15:35 | Inpatient (IN) | payer MEDICARE, MEDICAID ==
[~2018-11-23] VITALS: Ht 160 cm; Wt 76.7 kg
[~2018-11-23 15:35] MED LIST changes: +BECL10.62 IH
[2018-11-23] MEDS ORDERED: NS 1000 ML IV.SOLN IV ONE (15:45)
[2018-11-23] MEDS ORDERED: cefTRIAXone 1 GM IVPB PREMIX 50 ML IV ONE (15:45)
[2018-11-23] MEDS ORDERED: NACL 0.9% 1,000 ML IV ONE (16:15)
[2018-11-23 16:42] LABS: BASOPHILS % (AUTO) 0.5 % (0.0-2.0); EOSINOPHILS # (AUTO) 0.1 K/uL (0.0-0.4); EOSINOPHILS % (AUTO) 2.5 % (0.0-4.0); HEMATOCRIT 37.6 % (36-48); HEMOGLOBIN 11.9 g/dL (12.0-16.0); LYMPHOCYTES # (AUTO) 1.7 K/uL (1.0-5.5); LYMPHOCYTES % (AUTO) 32.4 % (20.5-51.5); MEAN CORPUSCULAR HEMOGLOBIN 30 pg (27-31); MEAN CORPUSCULAR HGB CONC 32 % (32-36); MEAN CORPUSCULAR VOLUME 96 fL (79.0-98.0); MONOCYTES # (AUTO) 0.4 K/uL (0.0-1.0); NEUTROPHILS # (AUTO) 2.9 K/uL (1.8-7.7); NEUTROPHILS % (AUTO) 56.6 % (40.0-70.0); PLATELET COUNT (AUTO) 146 K/uL (130-430); RED BLOOD CELL COUNT(AUTO) 3.92 MIL/uL (4.2-6.2); RED CELL DISTRIBUTION WIDTH 16.5 % (9.0-15.0); WHITE BLOOD COUNT (AUTO) 5.1 K/uL (4.8-10.8)
[2018-11-23 16:54] LABS: ANION GAP 3 (5-15); CALCIUM 8.3 mg/dL (8.4-11.0); CHLORIDE 95 mmol/L (98-107); CREATININE 2.85 mg/dL (0.55-1.30); GLUCOSE 257 mg/dL (70-99); POTASSIUM 4.2 mmol/L (3.5-5.1); SODIUM SERUM 133 mmol/L (136-145); UREA NITROGEN, BLOOD 59 mg/dL (8-21)
[2018-11-23 16:56] LABS: PROTHROMBIN TIME 10.4 SECS (9.5-12.5)
[2018-11-23 16:58] LABS: ALANINE AMINOTRANSFERASE 12 U/L (12-78); ALBUMIN 2.8 g/dL (3.4-4.8); AMYLASE 17 U/L (0-100); ASPARTATE AMINOTRANSFERASE 31 U/L (10-37); LIPASE 81 U/L (73-393); TOTAL BILIRUBIN 0.5 mg/dL (0.0-1.0)
[2018-11-23 17:41] LABS: BILIRUBIN,URINE NEGATIVE (NEGATIVE); BLOOD, URINE 2+ (NEGATIVE); CLARITY/URINE CLEAR (CLEAR); COLOR,URINE YELLOW (YELLOW); GLUCOSE,URINE NEGATIVE (NEGATIVE); KETONES,URINE NEGATIVE (NEGATIVE); LEUKOCYTE ESTERASE ,URINE TRACE (NEGATIVE); NITRITE, URINE NEGATIVE (NEGATIVE); PH,URINE 6.5 (5.0-8.0); PROTEIN URINE TRACE (NEGATIVE); UROBILINOGEN,URINE 0.2 (0.2-1.0)
[2018-11-23] MEDS ORDERED: ALBMDI INH (17:47)
[2018-11-23 18:06] LABS: BACTERIA,URINE MODERATE /HPF (None Seen); RBC,URINE 0-3 /HPF (0-3)
[2018-11-23] MEDS ORDERED: ACETAMINOPHEN 500 MG TABLET PO ONE (18:15)
[2018-11-23] MEDS ORDERED: AZITHROMYCIN 500 MG in NS 250 ML IV ONE (19:30)
[2018-11-23] MEDS ORDERED: ONDA4TAB5 PO (19:39)
[2018-11-23] MEDS ORDERED: AZITHROMYCIN 500 MG/VIAL (ZITHROMAX) IV ONE (20:04)
[2018-11-23 23:14] VITALS: BP_SYST 150
[2018-11-24 00:30] VITALS: BP_SYST 143
[2018-11-24] MEDS: INSULIN REGULAR, HUMAN 100 UNITS/ML, 10 ML VIAL (novoLIN R) SUBCUT PRN ×4 (06:20→20:51)
[2018-11-24 08:00] VITALS: BP_SYST 136
[2018-11-24] MEDS ORDERED: ONDANSETRON HCL 4 MG/2 ML VIAL IVP PRN (08:30)
[2018-11-24] MEDS ORDERED: HYDROcodone/ACETAMIN 5-325 MG TAB (NORCO/ VICODIN) PO PRN (08:30)
[2018-11-24] MEDS ORDERED: ACETAMINOPHEN 325 MG TABLET PO PRN (08:30)
[2018-11-24] MEDS ORDERED: FUROSEMIDE 40 MG TABLET PO SCH (09:00)
[2018-11-24] MEDS ORDERED: ESCITALOPRAM OXALATE 10 MG TABLET PO SCH (09:00)
[2018-11-24] MEDS ORDERED: IPRATROPIUM/ALBUTEROL SULFATE 3 ML AMPUL.NEB (DUONEB) INH PRN (09:15)
[2018-11-24 10:43] LABS: HEMATOCRIT 36.8 % (36-48); HEMOGLOBIN 11.8 g/dL (12.0-16.0); MEAN CORPUSCULAR HEMOGLOBIN 31 pg (27-31); MEAN CORPUSCULAR HGB CONC 32 % (32-36); MEAN CORPUSCULAR VOLUME 96 fL (79.0-98.0); PLATELET COUNT (AUTO) 136 K/uL (130-430); RED BLOOD CELL COUNT(AUTO) 3.85 MIL/uL (4.2-6.2); RED CELL DISTRIBUTION WIDTH 16.9 % (9.0-15.0); WHITE BLOOD COUNT (AUTO) 4.2 K/uL (4.8-10.8)
[2018-11-24 10:44] LABS: BASOPHILS % (AUTO) 0.2 % (0.0-2.0); EOSINOPHILS # (AUTO) 0.3 K/uL (0.0-0.4); EOSINOPHILS % (AUTO) 7.3 % (0.0-4.0); LYMPHOCYTES # (AUTO) 1.5 K/uL (1.0-5.5); LYMPHOCYTES % (AUTO) 34.9 % (20.5-51.5); MONOCYTES # (AUTO) 0.3 K/uL (0.0-1.0); MONOCYTES % (AUTO) 7.6 % (1.7-9.3); NEUTROPHILS # (AUTO) 2.1 K/uL (1.8-7.7)
[2018-11-24 11:05] LABS: ANION GAP 6 (5-15); CALCIUM 8.5 mg/dL (8.4-11.0); CHLORIDE 104 mmol/L (98-107); CREATININE 2.37 mg/dL (0.55-1.30); GLUCOSE 207 mg/dL (70-99); POTASSIUM 3.9 mmol/L (3.5-5.1); SODIUM SERUM 144 mmol/L (136-145); UREA NITROGEN, BLOOD 46 mg/dL (8-21)
[2018-11-24 11:25] VITALS: BP_SYST 145
[2018-11-24] MEDS ORDERED: CITALOPRAM HYDROBROMIDE 20 MG TABLET PO ONE (13:00)
[2018-11-24] MEDS ORDERED: CALCIUM CARBONATE/VITAMIN D3 1 TAB TABLET PO ONE (13:00)
[2018-11-24] MEDS ORDERED: FOLIC ACID 1 MG TABLET PO ONE (13:00)
[2018-11-24] MEDS ORDERED: FERROUS SULFATE 325 MG TABLET.DR PO ONE (13:00)
[2018-11-24] MEDS ORDERED: ASPIRIN 81 MG TAB.CHEW PO ONE (13:00)
[2018-11-24] MEDS ORDERED: PREGABALIN 75 MG CAPSULE (LYRICA) PO ONE (13:00)
[2018-11-24] MEDS ORDERED: NEPHROVITE, (FOLIC ACID/VITAMIN B COMP W-C 1 TAB) PO ONE (13:00)
[2018-11-24] MEDS ORDERED: LEVOTHYROXINE SODIUM 0.088 MG TABLET PO ONE (13:00)
[2018-11-24] MEDS: CARBIDOPA/LEVODOPA 25/100 MG TABLET PO SCH ×3 (13:29→20:42)
[2018-11-24] MEDS: ENOXAPARIN SODIUM 40 MG/0.4 ML SYRINGE SUBCUT SCH (13:33)
[2018-11-24] MEDS: cefTRIAXone 1 GM IVPB PREMIX 50 ML IV SCH (13:34)
[2018-11-24] MEDS: NACL 0.9% 1,000 ML IV SCH ×2 (13:36→21:00)
[2018-11-24 15:13] VITALS: BP_SYST 141
[2018-11-24 20:00] VITALS: BP_SYST 152
[2018-11-24] MEDS: ATORVASTATIN 20 MG TABLET PO SCH (20:41)
[2018-11-24] MEDS: PREGABALIN 75 MG CAPSULE (LYRICA) PO SCH (20:42)
[2018-11-24] MEDS: CALCIUM CARBONATE/VITAMIN D3 1 TAB TABLET PO SCH (20:42)
[2018-11-25 01:38] VITALS: BP_SYST 144
[2018-11-25] MEDS: NACL 0.9% 1,000 ML IV SCH ×2 (04:27→12:09)
[2018-11-25] MEDS: LEVOTHYROXINE SODIUM 0.088 MG TABLET PO SCH (06:03)
[2018-11-25 06:57] LABS: BASOPHILS % (AUTO) 0.3 % (0.0-2.0); EOSINOPHILS # (AUTO) 0.3 K/uL (0.0-0.4); EOSINOPHILS % (AUTO) 6.1 % (0.0-4.0); HEMATOCRIT 39.2 % (36-48); HEMOGLOBIN 12.3 g/dL (12.0-16.0); LYMPHOCYTES # (AUTO) 1.4 K/uL (1.0-5.5); LYMPHOCYTES % (AUTO) 24.9 % (20.5-51.5); MEAN CORPUSCULAR HEMOGLOBIN 30 pg (27-31); MEAN CORPUSCULAR HGB CONC 31 % (32-36); MEAN CORPUSCULAR VOLUME 97 fL (79.0-98.0); MONOCYTES # (AUTO) 0.4 K/uL (0.0-1.0); MONOCYTES % (AUTO) 7.1 % (1.7-9.3); NEUTROPHILS # (AUTO) 3.3 K/uL (1.8-7.7); NEUTROPHILS % (AUTO) 61.6 % (40.0-70.0); PLATELET COUNT (AUTO) 148 K/uL (130-430); RED BLOOD CELL COUNT(AUTO) 4.06 MIL/uL (4.2-6.2); RED CELL DISTRIBUTION WIDTH 16.9 % (9.0-15.0); WHITE BLOOD COUNT (AUTO) 5.4 K/uL (4.8-10.8)
[2018-11-25 07:08] LABS: ANION GAP 7 (5-15); CALCIUM 8.6 mg/dL (8.4-11.0); CHLORIDE 109 mmol/L (98-107); CHOLESTEROL 102 mg/dL (<200); CREATININE 2.05 mg/dL (0.55-1.30); GLUCOSE 87 mg/dL (70-99); HDL CHOLESTEROL 26 mg/dL (>55); LDL CHOLESTEROL 61 mg/dL (<100); PHOSPHORUS 4.4 mg/dL (2.7-4.5); POTASSIUM 3.5 mmol/L (3.5-5.1); SODIUM SERUM 145 mmol/L (136-145); THYROID STIMULATING HORMONE 0.81 uIu/mL (0.34-4.82); TRIGLYCERIDES 127 mg/dL (30-150); UREA NITROGEN, BLOOD 35 mg/dL (8-21)
[2018-11-25 08:00] VITALS: BP_SYST 163
[2018-11-25] MEDS: cefTRIAXone 1 GM IVPB PREMIX 50 ML IV SCH (08:29)
[2018-11-25] MEDS: CITALOPRAM HYDROBROMIDE 20 MG TABLET PO SCH (08:29)
[2018-11-25] MEDS: NEPHROVITE, (FOLIC ACID/VITAMIN B COMP W-C 1 TAB) PO SCH (08:30)
[2018-11-25] MEDS: PREGABALIN 75 MG CAPSULE (LYRICA) PO SCH ×2 (08:30→20:20)
[2018-11-25] MEDS: CALCIUM CARBONATE/VITAMIN D3 1 TAB TABLET PO SCH ×2 (08:30→20:20)
[2018-11-25] MEDS: FERROUS SULFATE 325 MG TABLET.DR PO SCH (08:30)
[2018-11-25] MEDS: ASPIRIN 81 MG TAB.CHEW PO SCH (08:30)
[2018-11-25] MEDS: CARBIDOPA/LEVODOPA 25/100 MG TABLET PO SCH ×4 (08:30→20:20)
[2018-11-25] MEDS: FOLIC ACID 1 MG TABLET PO SCH (08:30)
[2018-11-25] MEDS: ENOXAPARIN SODIUM 40 MG/0.4 ML SYRINGE SUBCUT SCH (08:36)
[2018-11-25] MEDS ORDERED: LORazepam 2 MG/ML VIAL IVP PRN (10:45)
[2018-11-25] MEDS ORDERED: POTASSIUM CHLORIDE 20 MEQ TAB.PRT.SR PO PRN (10:45)
[2018-11-25] MEDS ORDERED: DOCUSATE SODIUM 100 MG CAPSULE PO PRN (10:45)
[2018-11-25] MEDS ORDERED: MORPHINE 4 MG/ML INJ. SYRINGE IVP PRN ×2 (10:45)
[2018-11-25] MEDS ORDERED: MAGNESIUM SULFATE 50 ML IV PRN (10:45)
[2018-11-25] MEDS ORDERED: ACETAMINOPHEN 325 MG TABLET PO PRN (10:45)
[2018-11-25] MEDS ORDERED: ONDANSETRON HCL 4 MG/2 ML VIAL IVP PRN (10:45)
[2018-11-25 11:36] VITALS: BP_SYST 158
[2018-11-25] MEDS: INSULIN REGULAR, HUMAN 100 UNITS/ML, 10 ML VIAL (novoLIN R) SUBCUT PRN (12:04)
[2018-11-25 15:25] VITALS: BP_SYST 147
[2018-11-25] MEDS: MUPIROCIN 2% TOPICAL OINTMENT 22 GM NS SCH ×2 (17:54→20:34)
[2018-11-25 20:00] VITALS: BP_SYST 149
[2018-11-25] MEDS: ATORVASTATIN 20 MG TABLET PO SCH (20:20)
[2018-11-25] MEDS: HEPARIN SODIUM,PORCINE 5000 UNITS/ML VIAL SUBCUT SCH (20:21)
[2018-11-26] MEDS ORDERED: DEXTROSE 50% JECT 50 ML DISP.SYRIN ONE (05:24)
[2018-11-26] MEDS ORDERED: DEXTROSE 50% JECT 50 ML DISP.SYRIN IVP PRN (05:30)
[2018-11-26] MEDS ORDERED: GLUCOSE 15 GM GEL (in 37.5 GM TUBE) PO PRN (05:30)
[2018-11-26 06:22] LABS: ANION GAP 7 (5-15); CALCIUM 8.5 mg/dL (8.4-11.0); CHLORIDE 107 mmol/L (98-107); CREATININE 1.67 mg/dL (0.55-1.30); GLUCOSE 197 mg/dL (70-99); POTASSIUM 3.7 mmol/L (3.5-5.1); SODIUM SERUM 145 mmol/L (136-145); UREA NITROGEN, BLOOD 27 mg/dL (8-21)
[2018-11-26 06:27] LABS: PHOSPHORUS 3.5 mg/dL (2.7-4.5)
[2018-11-26] MEDS: LEVOTHYROXINE SODIUM 0.088 MG TABLET PO SCH (06:32)
[2018-11-26 07:08] LABS: BASOPHILS % (AUTO) 0.1 % (0.0-2.0); EOSINOPHILS # (AUTO) 0.7 K/uL (0.0-0.4); EOSINOPHILS % (AUTO) 6.4 % (0.0-4.0); HEMATOCRIT 38.6 % (36-48); HEMOGLOBIN 12.4 g/dL (12.0-16.0); LYMPHOCYTES # (AUTO) 5.7 K/uL (1.0-5.5); MEAN CORPUSCULAR HEMOGLOBIN 31 pg (27-31); MEAN CORPUSCULAR HGB CONC 32 % (32-36); MEAN CORPUSCULAR VOLUME 95 fL (79.0-98.0); MONOCYTES # (AUTO) 0.7 K/uL (0.0-1.0); MONOCYTES % (AUTO) 6.7 % (1.7-9.3); NEUTROPHILS # (AUTO) 3.5 K/uL (1.8-7.7); NEUTROPHILS % (AUTO) 33.5 % (40.0-70.0); PLATELET COUNT (AUTO) 141 K/uL (130-430); RED BLOOD CELL COUNT(AUTO) 4.06 MIL/uL (4.2-6.2); RED CELL DISTRIBUTION WIDTH 16.2 % (9.0-15.0); WHITE BLOOD COUNT (AUTO) 10.6 K/uL (4.8-10.8)
[2018-11-26 08:36] VITALS: BP_SYST 160
[2018-11-26] MEDS: cefTRIAXone 1 GM IVPB PREMIX 50 ML IV SCH (09:20)
[2018-11-26] MEDS: CARBIDOPA/LEVODOPA 25/100 MG TABLET PO SCH (09:21)
[2018-11-26] MEDS: CALCIUM CARBONATE/VITAMIN D3 1 TAB TABLET PO SCH (09:21)
[2018-11-26] MEDS: NACL 0.9% 1,000 ML IV SCH (09:21)
[2018-11-26] MEDS: FOLIC ACID 1 MG TABLET PO SCH (09:21)
[2018-11-26] MEDS: PREGABALIN 75 MG CAPSULE (LYRICA) PO SCH (09:21)
[2018-11-26] MEDS: ASPIRIN 81 MG TAB.CHEW PO SCH (09:21)
[2018-11-26] MEDS: FERROUS SULFATE 325 MG TABLET.DR PO SCH (09:22)
[2018-11-26] MEDS: CITALOPRAM HYDROBROMIDE 20 MG TABLET PO SCH (09:22)
[2018-11-26] MEDS: NEPHROVITE, (FOLIC ACID/VITAMIN B COMP W-C 1 TAB) PO SCH (09:22)
[2018-11-26] MEDS: HEPARIN SODIUM,PORCINE 5000 UNITS/ML VIAL SUBCUT SCH (09:27)
[2018-11-26 09:32] LABS: LYMPHOCYTES % (AUTO) 53.3 % (20.5-51.5)
[2018-11-26 11:17] VITALS: BP_SYST 142
[2018-11-26 11:21] VITALS: BP_SYST 142
[2018-11-26] MEDS: MUPIROCIN 2% TOPICAL OINTMENT 22 GM NS SCH (12:43)
== END 2018-11-26 14:00 | disposition home health service (06) | DRG 682 ==
LOC: SED 15:35 → SMU 22:26
PROVIDERS: ADMIT Family Medicine; ATTEND Family Medicine
DX: N17.0 Acute kidney failure with tubular necrosis (principal); G93.41 Metabolic encephalopathy; N39.0 Urinary tract infection, site not specified; I13.2 Hypertensive heart and chronic kidney disease with heart failure and with stage 5 chronic kidney disease, or end stage renal disease; J98.11 Atelectasis; K59.00 Constipation, unspecified; I70.90 Unspecified atherosclerosis; F02.80 Dementia in other diseases classified elsewhere, unspecified severity, without behavioral disturbance, psychotic disturbance, mood disturbance, and anxiety; N18.5 Chronic kidney disease, stage 5; F32.9 Major depressive disorder, single episode, unspecified; D63.8 Anemia in other chronic diseases classified elsewhere; A08.4 Viral intestinal infection, unspecified; E11.22 Type 2 diabetes mellitus with diabetic chronic kidney disease; E11.40 Type 2 diabetes mellitus with diabetic neuropathy, unspecified; E78.5 Hyperlipidemia, unspecified; E78.00 Pure hypercholesterolemia, unspecified; G20 Parkinson's disease; J45.909 Unspecified asthma, uncomplicated; I50.9 Heart failure, unspecified; E03.9 Hypothyroidism, unspecified; Z79.899 Other long term (current) drug therapy; Z90.49 Acquired absence of other specified parts of digestive tract; Z22.322 Carrier or suspected carrier of Methicillin resistant Staphylococcus aureus
CPT/HCPCS: 36415; 71045; 80048; 80053; 80061; 81000-TC; 82150-TC; 82550-TC; 82962; 83036; 83605; 83690-TC; 83735-TC; 83880; 84100-TC; 84443-TC; 84484; 85025; 85379; 85610-TC; 85730-TC; 86710; 87040-TC; 87081; 87086; 93005; 96365; 97116-GP; 97530-GP; 99285; J0456; J0696; J1644; J1650; J1815; J7030

== ENCOUNTER 2018-12-02 19:50 | Inpatient (IN) | payer MEDICARE, MEDICAID ==
[~2018-12-02] VITALS: Ht 160 cm; Wt 77.6 kg
[~2018-12-02 19:50] MED LIST changes: -ACET-2634 PO; +ALBMDI INH; -ALBU8.5H8 INH; -BECL10.62 IH; -CALC-1036 PO; -CARB-61 PO; -ESCI10TA54 PO; -FERR-31 PO; -FURO-149 PO; -FURO20TA4 PO; -MULT-1117 PO; -OMEG1CAP75 PO; +ONDA4TAB5 PO
[2018-12-02 19:56] VITALS: BP_SYST 153
[2018-12-02 20:34] LABS: BASOPHILS # (AUTO) 0.2 K/uL (0.0-0.2); BASOPHILS % (AUTO) 1.4 % (0.0-2.0); EOSINOPHILS # (AUTO) 0.5 K/uL (0.0-0.4); EOSINOPHILS % (AUTO) 3.4 % (0.0-4.0); HEMATOCRIT 43.6 % (36-48); HEMOGLOBIN 13.9 g/dL (12.0-16.0); LYMPHOCYTES # (AUTO) 2.7 K/uL (1.0-5.5); LYMPHOCYTES % (AUTO) 19.8 % (20.5-51.5); MEAN CORPUSCULAR HEMOGLOBIN 30 pg (27-31); MEAN CORPUSCULAR HGB CONC 32 % (32-36); MEAN CORPUSCULAR VOLUME 95 fL (79.0-98.0); MONOCYTES # (AUTO) 0.4 K/uL (0.0-1.0); NEUTROPHILS # (AUTO) 9.6 K/uL (1.8-7.7); NEUTROPHILS % (AUTO) 72.4 % (40.0-70.0); PLATELET COUNT (AUTO) 201 K/uL (130-430); RED BLOOD CELL COUNT(AUTO) 4.59 MIL/uL (4.2-6.2); RED CELL DISTRIBUTION WIDTH 16.4 % (9.0-15.0); WHITE BLOOD COUNT (AUTO) 13.4 K/uL (4.8-10.8)
[2018-12-02 20:44] LABS: ANION GAP 8 (5-15); CALCIUM 9.4 mg/dL (8.4-11.0); CHLORIDE 101 mmol/L (98-107); CREATININE 2.57 mg/dL (0.55-1.30); GLUCOSE 194 mg/dL (70-99); POTASSIUM 5.4 mmol/L (3.5-5.1); SODIUM SERUM 139 mmol/L (136-145); UREA NITROGEN, BLOOD 61 mg/dL (8-21)
[2018-12-02 20:50] LABS: ALANINE AMINOTRANSFERASE 7 U/L (12-78); ALBUMIN 3.2 g/dL (3.4-4.8); ASPARTATE AMINOTRANSFERASE 32 U/L (10-37); TOTAL BILIRUBIN 0.3 mg/dL (0.0-1.0)
[2018-12-02 22:48] LABS: BILIRUBIN,URINE NEGATIVE (NEGATIVE); CLARITY/URINE CLEAR (CLEAR); COLOR,URINE YELLOW (YELLOW); GLUCOSE,URINE NEGATIVE (NEGATIVE); KETONES,URINE NEGATIVE (NEGATIVE); LEUKOCYTE ESTERASE ,URINE 1+ (NEGATIVE); NITRITE, URINE NEGATIVE (NEGATIVE); PH,URINE 5.5 (5.0-8.0); PROTEIN URINE TRACE (NEGATIVE); UROBILINOGEN,URINE 0.2 (0.2-1.0)
[2018-12-02] MEDS ORDERED: NACL 0.9% 1,000 ML IV ONE (22:48)
[2018-12-02 22:49] LABS: BLOOD, URINE TRACE (NEGATIVE)
[2018-12-02] MEDS ORDERED: MORPHINE 4 MG/ML INJ. SYRINGE IVP ONE (23:00)
[2018-12-02] MEDS ORDERED: ONDANSETRON HCL 4 MG/2 ML VIAL IVP ONE (23:00)
[2018-12-02 23:12] LABS: BACTERIA,URINE FEW /HPF (None Seen)
[2018-12-02] MEDS ORDERED: LEVOFLOXACIN 500 MG/D5W 100 ML IV ONE (23:45)
[2018-12-03 04:28] VITALS: BP_SYST 117
[2018-12-03] MEDS: D5/0.45 NS 1,000 ML IV SCH ×3 (04:48→20:31)
[2018-12-03] MEDS ORDERED: MORPHINE 4 MG/ML INJ. SYRINGE IVP PRN ×2 (06:00→06:15)
[2018-12-03] MEDS ORDERED: LORazepam 2 MG/ML VIAL IVP PRN (06:00)
[2018-12-03] MEDS ORDERED: ALBUTEROL MDI INHALATION 8 GM INH INH PRN (06:00)
[2018-12-03] MEDS ORDERED: ONDANSETRON HCL 4 MG/2 ML VIAL IVP PRN (06:00)
[2018-12-03] MEDS ORDERED: DEXTROSE 50% JECT 50 ML DISP.SYRIN IVP PRN ×2 (06:15)
[2018-12-03] MEDS ORDERED: LEVOFLOXACIN 500 MG/D5W 100 ML IV SCH (06:15)
[2018-12-03] MEDS ORDERED: ALBUTEROL SULFATE 0.083% 2.5 MG/3 ML VIAL.NEB INH PRN (07:30)
[2018-12-03 08:23] VITALS: BP_SYST 139
[2018-12-03 08:28] LABS: ANION GAP 6 (5-15); CALCIUM 8.3 mg/dL (8.4-11.0); CHLORIDE 103 mmol/L (98-107); CREATININE 2.45 mg/dL (0.55-1.30); GLUCOSE 303 mg/dL (70-99); POTASSIUM 5.2 mmol/L (3.5-5.1); SODIUM SERUM 140 mmol/L (136-145); UREA NITROGEN, BLOOD 59 mg/dL (8-21)
[2018-12-03 08:36] LABS: BASOPHILS % (AUTO) 0.6 % (0.0-2.0); EOSINOPHILS # (AUTO) 0.2 K/uL (0.0-0.4); EOSINOPHILS % (AUTO) 5.6 % (0.0-4.0); HEMATOCRIT 34.1 % (36-48); LYMPHOCYTES # (AUTO) 1.3 K/uL (1.0-5.5); LYMPHOCYTES % (AUTO) 32.5 % (20.5-51.5); MEAN CORPUSCULAR HEMOGLOBIN 31 pg (27-31); MEAN CORPUSCULAR HGB CONC 32 % (32-36); MEAN CORPUSCULAR VOLUME 96 fL (79.0-98.0); MONOCYTES # (AUTO) 0.5 K/uL (0.0-1.0); MONOCYTES % (AUTO) 12.8 % (1.7-9.3); PLATELET COUNT (AUTO) 174 K/uL (130-430); RED BLOOD CELL COUNT(AUTO) 3.57 MIL/uL (4.2-6.2); RED CELL DISTRIBUTION WIDTH 15.6 % (9.0-15.0)
[2018-12-03] MEDS: FLUTICASONE FUROATE 200 MCG BLST.W.DEV INH SCH (09:18)
[2018-12-03] MEDS ORDERED: GASTROGRAFIN 120 ML ONE (09:45)
[2018-12-03 09:58] LABS: NEUTROPHILS % (AUTO) 48.5 % (40.0-70.0)
[2018-12-03 11:22] VITALS: BP_SYST 127
[2018-12-03] MEDS: PIPERACILLIN/TAZO 2.25G/DEX-IS 50 ML IV SCH ×3 (11:28→23:47)
[2018-12-03] MEDS: INSULIN REGULAR, HUMAN 100 UNITS/ML, 10 ML VIAL (novoLIN R) SUBCUT PRN ×3 (11:31→23:50)
[2018-12-03 15:55] VITALS: BP_SYST 119
[2018-12-03 20:00] VITALS: BP_SYST 147
[2018-12-03] MEDS ORDERED: INSULIN GLARGINE HUM REC ANLOG 40 UNIT SQ SCH (21:00)
[2018-12-04] VITALS (9 sets, daily range): BP systolic 149–198
[2018-12-04] MEDS: LEVOFLOXACIN 250 MG/D5W 50 ML IV SCH (00:36)
[2018-12-04] MEDS: PIPERACILLIN/TAZO 2.25G/DEX-IS 50 ML IV SCH ×4 (05:11→23:09)
[2018-12-04 07:06] LABS: BASOPHILS % (AUTO) 0.2 % (0.0-2.0); EOSINOPHILS # (AUTO) 0.3 K/uL (0.0-0.4); EOSINOPHILS % (AUTO) 5.5 % (0.0-4.0); HEMOGLOBIN 11.3 g/dL (12.0-16.0); LYMPHOCYTES % (AUTO) 36.2 % (20.5-51.5); MEAN CORPUSCULAR HEMOGLOBIN 31 pg (27-31); MEAN CORPUSCULAR HGB CONC 32 % (32-36); MEAN CORPUSCULAR VOLUME 96 fL (79.0-98.0); MONOCYTES # (AUTO) 0.5 K/uL (0.0-1.0); NEUTROPHILS # (AUTO) 2.7 K/uL (1.8-7.7); NEUTROPHILS % (AUTO) 49.1 % (40.0-70.0); PLATELET COUNT (AUTO) 182 K/uL (130-430); RED BLOOD CELL COUNT(AUTO) 3.66 MIL/uL (4.2-6.2); RED CELL DISTRIBUTION WIDTH 15.8 % (9.0-15.0); WHITE BLOOD COUNT (AUTO) 5.5 K/uL (4.8-10.8)
[2018-12-04 07:19] LABS: ANION GAP 5 (5-15); C-REACTIVE PROTEIN QUANT 1.1 mg/dL (0-0.5); CALCIUM 8.5 mg/dL (8.4-11.0); CHLORIDE 104 mmol/L (98-107); CREATININE 2.25 mg/dL (0.55-1.30); GLUCOSE 94 mg/dL (70-99); PHOSPHORUS 4.2 mg/dL (2.7-4.5); POTASSIUM 4.4 mmol/L (3.5-5.1); SODIUM SERUM 140 mmol/L (136-145); UREA NITROGEN, BLOOD 44 mg/dL (8-21)
[2018-12-04] MEDS: FLUTICASONE FUROATE 200 MCG BLST.W.DEV INH SCH (08:18)
[2018-12-04] MEDS: D5/0.45 NS 1,000 ML IV SCH ×2 (08:18→20:43)
[2018-12-04 10:58] LABS: ERYTHROCYTE SEDIMENTATION RATE 20 MM/HR (0-20)
[2018-12-04] MEDS: INSULIN REGULAR, HUMAN 100 UNITS/ML, 10 ML VIAL (novoLIN R) SUBCUT PRN ×3 (11:27→23:13)
[2018-12-04] MEDS ORDERED: HYDROCHLOROTHIAZIDE 25 MG TABLET (HCTZ) PO ONE (12:15)
[2018-12-04] MEDS: cloNIDine HCL 0.1 MG TABLET PO PRN (13:22)
[2018-12-04] MEDS ORDERED: LISINOPRIL 10 MG TABLET (PRINIVIL) PO ONE (17:00)
[2018-12-04] MEDS: LISINOPRIL 10 MG TABLET (PRINIVIL) PO SCH (20:44)
[2018-12-04] MEDS: HYDROCHLOROTHIAZIDE 25 MG TABLET (HCTZ) PO SCH (20:45)
[2018-12-04] MEDS ORDERED: LEVOFLOXACIN 250 MG/D5W 50 ML IV SCH (21:00)
[2018-12-04] MEDS: CARBIDOPA/LEVODOPA 25/100 MG TABLET PO SCH (23:08)
[2018-12-05 00:27] VITALS: BP_SYST 155
[2018-12-05] MEDS: LEVOFLOXACIN 250 MG/D5W 50 ML IV SCH (00:44)
[2018-12-05] MEDS: D5/0.45 NS 1,000 ML IV SCH ×2 (05:30→15:49)
[2018-12-05] MEDS: PIPERACILLIN/TAZO 2.25G/DEX-IS 50 ML IV SCH (05:59)
[2018-12-05 07:19] LABS: ANION GAP 4 (5-15); C-REACTIVE PROTEIN QUANT 0.7 mg/dL (0-0.5); CALCIUM 8.7 mg/dL (8.4-11.0); CHLORIDE 108 mmol/L (98-107); CREATININE 2.07 mg/dL (0.55-1.30); GLUCOSE 75 mg/dL (70-99); POTASSIUM 4.5 mmol/L (3.5-5.1); SODIUM SERUM 142 mmol/L (136-145); UREA NITROGEN, BLOOD 30 mg/dL (8-21)
[2018-12-05 07:38] LABS: BASOPHILS % (AUTO) 0.5 % (0.0-2.0); EOSINOPHILS # (AUTO) 0.6 K/uL (0.0-0.4); EOSINOPHILS % (AUTO) 9.4 % (0.0-4.0); HEMATOCRIT 37.1 % (36-48); HEMOGLOBIN 11.7 g/dL (12.0-16.0); LYMPHOCYTES # (AUTO) 2.1 K/uL (1.0-5.5); MEAN CORPUSCULAR HEMOGLOBIN 30 pg (27-31); MEAN CORPUSCULAR HGB CONC 32 % (32-36); MEAN CORPUSCULAR VOLUME 96 fL (79.0-98.0); MONOCYTES # (AUTO) 0.8 K/uL (0.0-1.0); MONOCYTES % (AUTO) 11.5 % (1.7-9.3); NEUTROPHILS # (AUTO) 3.4 K/uL (1.8-7.7); NEUTROPHILS % (AUTO) 48.6 % (40.0-70.0); PLATELET COUNT (AUTO) 181 K/uL (130-430); RED BLOOD CELL COUNT(AUTO) 3.88 MIL/uL (4.2-6.2); RED CELL DISTRIBUTION WIDTH 15.5 % (9.0-15.0); WHITE BLOOD COUNT (AUTO) 6.9 K/uL (4.8-10.8)
[2018-12-05 08:00] VITALS: BP_SYST 118
[2018-12-05 08:37] LABS: ERYTHROCYTE SEDIMENTATION RATE 18 MM/HR (0-20)
[2018-12-05] MEDS: FLUTICASONE FUROATE 200 MCG BLST.W.DEV INH SCH (08:47)
[2018-12-05] MEDS: HYDROCHLOROTHIAZIDE 25 MG TABLET (HCTZ) PO SCH ×3 (08:48→21:50)
[2018-12-05] MEDS: CARBIDOPA/LEVODOPA 25/100 MG TABLET PO SCH ×4 (08:49→21:49)
[2018-12-05] MEDS: LISINOPRIL 10 MG TABLET (PRINIVIL) PO SCH ×2 (08:49→21:49)
[2018-12-05] MEDS ORDERED: LEVOFLOXACIN 250 MG TABLET PO SCH (10:00)
[2018-12-05] MEDS: cloNIDine HCL 0.1 MG TABLET PO PRN ×3 (12:04→23:59)
[2018-12-05] MEDS: INSULIN REGULAR, HUMAN 100 UNITS/ML, 10 ML VIAL (novoLIN R) SUBCUT PRN ×2 (12:06→17:12)
[2018-12-05 12:26] VITALS: BP_SYST 170
[2018-12-05 16:35] VITALS: BP_SYST 166
[2018-12-05 20:00] VITALS: BP_SYST 164
[2018-12-06] VITALS (7 sets, daily range): BP systolic 115–168
[2018-12-06] MEDS: INSULIN REGULAR, HUMAN 100 UNITS/ML, 10 ML VIAL (novoLIN R) SUBCUT PRN ×3 (00:04→17:55)
[2018-12-06] MEDS: LEVOFLOXACIN 250 MG/D5W 50 ML IV SCH (00:12)
[2018-12-06] MEDS: D5/0.45 NS 1,000 ML IV SCH ×2 (04:19→13:25)
[2018-12-06 07:06] LABS: BASOPHILS % (AUTO) 0.5 % (0.0-2.0); EOSINOPHILS # (AUTO) 0.6 K/uL (0.0-0.4); EOSINOPHILS % (AUTO) 7.2 % (0.0-4.0); HEMATOCRIT 39.2 % (36-48); HEMOGLOBIN 12.4 g/dL (12.0-16.0); LYMPHOCYTES % (AUTO) 25.5 % (20.5-51.5); MEAN CORPUSCULAR HEMOGLOBIN 30 pg (27-31); MEAN CORPUSCULAR HGB CONC 32 % (32-36); MEAN CORPUSCULAR VOLUME 95 fL (79.0-98.0); MONOCYTES # (AUTO) 0.7 K/uL (0.0-1.0); MONOCYTES % (AUTO) 9.1 % (1.7-9.3); NEUTROPHILS # (AUTO) 4.4 K/uL (1.8-7.7); NEUTROPHILS % (AUTO) 57.7 % (40.0-70.0); PLATELET COUNT (AUTO) 179 K/uL (130-430); RED BLOOD CELL COUNT(AUTO) 4.13 MIL/uL (4.2-6.2); RED CELL DISTRIBUTION WIDTH 15.3 % (9.0-15.0); WHITE BLOOD COUNT (AUTO) 7.7 K/uL (4.8-10.8)
[2018-12-06 07:10] LABS: ANION GAP 8 (5-15); CALCIUM 8.9 mg/dL (8.4-11.0); CHLORIDE 106 mmol/L (98-107); CREATININE 1.71 mg/dL (0.55-1.30); GLUCOSE 97 mg/dL (70-99); POTASSIUM 3.9 mmol/L (3.5-5.1); SODIUM SERUM 141 mmol/L (136-145); UREA NITROGEN, BLOOD 26 mg/dL (8-21)
[2018-12-06 07:17] LABS: PHOSPHORUS 3.7 mg/dL (2.7-4.5)
[2018-12-06] MEDS ORDERED: cloNIDine HCL 0.1 MG TABLET PO PRN (08:15)
[2018-12-06] MEDS: LISINOPRIL 10 MG TABLET (PRINIVIL) PO SCH ×2 (08:33→20:32)
[2018-12-06] MEDS: CARBIDOPA/LEVODOPA 25/100 MG TABLET PO SCH ×4 (08:33→20:32)
[2018-12-06] MEDS: FLUTICASONE FUROATE 200 MCG BLST.W.DEV INH SCH (08:34)
[2018-12-06] MEDS: HYDROCHLOROTHIAZIDE 25 MG TABLET (HCTZ) PO SCH ×3 (08:34→20:33)
[2018-12-07] MEDS: INSULIN REGULAR, HUMAN 100 UNITS/ML, 10 ML VIAL (novoLIN R) SUBCUT PRN ×2 (00:04→12:29)
[2018-12-07] MEDS: LEVOFLOXACIN 250 MG/D5W 50 ML IV SCH (00:04)
[2018-12-07 03:43] VITALS: BP_SYST 156
[2018-12-07 07:41] LABS: ALANINE AMINOTRANSFERASE 59 U/L (12-78); ALBUMIN 2.6 g/dL (3.4-4.8); ANION GAP 8 (5-15); ASPARTATE AMINOTRANSFERASE 66 U/L (10-37); CHLORIDE 106 mmol/L (98-107); CREATININE 1.56 mg/dL (0.55-1.30); GLUCOSE 116 mg/dL (70-99); POTASSIUM 4.7 mmol/L (3.5-5.1); SODIUM SERUM 138 mmol/L (136-145); TOTAL BILIRUBIN 0.5 mg/dL (0.0-1.0); UREA NITROGEN, BLOOD 23 mg/dL (8-21)
[2018-12-07 08:00] VITALS: BP_SYST 164
[2018-12-07] MEDS: CARBIDOPA/LEVODOPA 25/100 MG TABLET PO SCH ×2 (08:42→12:32)
[2018-12-07] MEDS: HYDROCHLOROTHIAZIDE 25 MG TABLET (HCTZ) PO SCH ×2 (08:43→08:45)
[2018-12-07] MEDS: LISINOPRIL 10 MG TABLET (PRINIVIL) PO SCH (08:44)
[2018-12-07] MEDS: FLUTICASONE FUROATE 200 MCG BLST.W.DEV INH SCH (08:46)
[2018-12-07 12:47] VITALS: BP_SYST 158
[2018-12-07] MEDS ORDERED: FLUT200B INH (14:21)
[2018-12-07] MEDS ORDERED: LISI10TA5 PO (14:21)
[2018-12-07] MEDS ORDERED: HCT25 PO (14:21)
[2018-12-07] MEDS ORDERED: LEVO250T2 PO (14:21)
[2018-12-07 16:28] VITALS: BP_SYST 154
[2018-12-07 16:45] VITALS: BP_SYST 154
== END 2018-12-07 17:15 | disposition home or self-care (01) | DRG 871 ==
LOC: SED 19:50 → SMU 12-03 02:41
PROVIDERS: ADMIT Preventive Medicine Preventive Medicine/Occupational Environmental Medicine; ATTEND Preventive Medicine Preventive Medicine/Occupational Environmental Medicine
DX: A41.9 Sepsis, unspecified organism (principal); J96.00 Acute respiratory failure, unspecified whether with hypoxia or hypercapnia; N17.0 Acute kidney failure with tubular necrosis; K56.609 Unspecified intestinal obstruction, unspecified as to partial versus complete obstruction; N12 Tubulo-interstitial nephritis, not specified as acute or chronic; I13.0 Hypertensive heart and chronic kidney disease with heart failure and stage 1 through stage 4 chronic kidney disease, or unspecified chronic kidney disease; N18.3 Chronic kidney disease, stage 3 (moderate); I50.9 Heart failure, unspecified; D64.9 Anemia, unspecified; E11.22 Type 2 diabetes mellitus with diabetic chronic kidney disease; E11.65 Type 2 diabetes mellitus with hyperglycemia; E27.8 Other specified disorders of adrenal gland; E78.00 Pure hypercholesterolemia, unspecified; E78.5 Hyperlipidemia, unspecified; R74.0 Nonspecific elevation of levels of transaminase and lactic acid dehydrogenase [LDH]; E87.5 Hyperkalemia; E88.09 Other disorders of plasma-protein metabolism, not elsewhere classified; G20 Parkinson's disease; J44.9 Chronic obstructive pulmonary disease, unspecified; K52.9 Noninfective gastroenteritis and colitis, unspecified; Z83.3 Family history of diabetes mellitus; Z79.899 Other long term (current) drug therapy
CPT/HCPCS: 36415; 74018; 74250-TC; 80048; 80053; 81000-TC; 82272; 82962; 83690-TC; 83735-TC; 84100-TC; 85025; 85651-TC; 86140; 87040-TC; 87045-TC; 87046; 87081; 87086; 89055; 94760; 96361; 96365; 96375; 97112-GP; 97530-GP; 99285; J1815; J1956; J2270; J2405; J2543; J7030; Q9963

== ENCOUNTER 2019-03-02 19:42 | Emergency (ER) | payer MEDICARE, MEDICAID ==
[~2019-03-02] VITALS: Ht 154.9 cm; Wt 78.5 kg
[~2019-03-02 19:42] MED LIST changes: +FLUT200B INH; +HCT25 PO; +LEVO250T2 PO; +LISI10TA5 PO
[2019-03-02 19:45] VITALS: BP_SYST 162
[2019-03-02 21:08] LABS: BASOPHILS # (AUTO) 0.1 K/uL (0.0-0.2); BASOPHILS % (AUTO) 0.6 % (0.0-2.0); EOSINOPHILS # (AUTO) 0.2 K/uL (0.0-0.4); HEMATOCRIT 32.6 % (36-48); HEMOGLOBIN 10.7 g/dL (12.0-16.0); LYMPHOCYTES # (AUTO) 2.1 K/uL (1.0-5.5); LYMPHOCYTES % (AUTO) 25.7 % (20.5-51.5); MEAN CORPUSCULAR HEMOGLOBIN 30 pg (27-31); MEAN CORPUSCULAR HGB CONC 33 % (32-36); MEAN CORPUSCULAR VOLUME 93 fL (79.0-98.0); MONOCYTES # (AUTO) 0.5 K/uL (0.0-1.0); MONOCYTES % (AUTO) 6.4 % (1.7-9.3); NEUTROPHILS # (AUTO) 5.2 K/uL (1.8-7.7); NEUTROPHILS % (AUTO) 64.3 % (40.0-70.0); PLATELET COUNT (AUTO) 176 K/uL (130-430); RED BLOOD CELL COUNT(AUTO) 3.52 MIL/uL (4.2-6.2); RED CELL DISTRIBUTION WIDTH 16.6 % (9.0-15.0)
[2019-03-02 21:23] LABS: ANION GAP 7 (5-15); CALCIUM 9.6 mg/dL (8.4-11.0); CHLORIDE 102 mmol/L (98-107); CREATININE 2.23 mg/dL (0.55-1.30); GLUCOSE 141 mg/dL (70-99); POTASSIUM 4.8 mmol/L (3.5-5.1); SODIUM SERUM 141 mmol/L (136-145); UREA NITROGEN, BLOOD 53 mg/dL (8-21)
[2019-03-02 21:27] LABS: ALANINE AMINOTRANSFERASE 9 U/L (12-78); ALBUMIN 3.4 g/dL (3.4-4.8); ASPARTATE AMINOTRANSFERASE 23 U/L (10-37); LIPASE 83 U/L (73-393); TOTAL BILIRUBIN 0.7 mg/dL (0.0-1.0)
[2019-03-02 23:07] VITALS: BP_SYST 162
== END 2019-03-02 23:07 | disposition home or self-care (01) ==
LOC: SED 19:42
DX: R10.9 Unspecified abdominal pain (principal); R19.7 Diarrhea, unspecified; I13.0 Hypertensive heart and chronic kidney disease with heart failure and stage 1 through stage 4 chronic kidney disease, or unspecified chronic kidney disease; E11.22 Type 2 diabetes mellitus with diabetic chronic kidney disease; N18.9 Chronic kidney disease, unspecified; I50.9 Heart failure, unspecified; E78.00 Pure hypercholesterolemia, unspecified; G20 Parkinson's disease; Z90.49 Acquired absence of other specified parts of digestive tract; Z79.899 Other long term (current) drug therapy
CPT/HCPCS: 36415; 80053; 83690-TC; 85025; 99284

== ENCOUNTER 2019-06-16 10:44 | Emergency (ER) | payer MEDICARE, MEDICAID ==
[~2019-06-16] VITALS: Ht 154.9 cm; Wt 78.0 kg
[2019-06-16 10:48] VITALS: BP_SYST 134
[2019-06-16 12:50] VITALS: BP_SYST 146
== END 2019-06-16 12:48 | disposition home or self-care (01) ==
LOC: SED 10:44
DX: S22.42XA Multiple fractures of ribs, left side, initial encounter for closed fracture (principal); I10 Essential (primary) hypertension; I11.0 Hypertensive heart disease with heart failure; I50.9 Heart failure, unspecified; E78.00 Pure hypercholesterolemia, unspecified; Z79.4 Long term (current) use of insulin; Z79.899 Other long term (current) drug therapy; Z90.49 Acquired absence of other specified parts of digestive tract; W01.0XXA Fall on same level from slipping, tripping and stumbling without subsequent striking against object, initial encounter; Y93.89 Activity, other specified; Y92.89 Other specified places as the place of occurrence of the external cause; Y99.8 Other external cause status
CPT/HCPCS: 71045; 71100; 82962; 99282; 99283

== ENCOUNTER 2019-07-25 10:33 | Emergency (ER) | payer OTHER, MEDICAID ==
[~2019-07-25] VITALS: Ht 154.9 cm; Wt 78.9 kg
[2019-07-25 10:37] VITALS: BP_SYST 154
--- NOTE | 2019-07-25 10:42 | NUR ---
Placed in room 5 . Placed on medical insurance claims processor, blood pressure machine and pulse oximeter. To gown for exam. Side rails up.
--- NOTE | 2019-07-25 10:50 | NUR ---
pt was bib by her daughter for anxiety related with chest tightness. Pt has been using home o2 2l for over 10yrs for chronic bronchitis. Pt is AAO x 3. EKG done. Will continue to monitor.
--- NOTE | 2019-07-25 10:55 | NUR ---
ER at bedside examining patient.
[2019-07-25] MEDS ORDERED: ALPRAZolam 0.25 MG TABLET PO ONE (11:00)
[2019-07-25 11:24] LABS: BASOPHILS # (AUTO) 0.1 K/uL (0.0-0.2); BASOPHILS % (AUTO) 0.7 % (0.0-2.0); EOSINOPHILS # (AUTO) 0.1 K/uL (0.0-0.4); HEMATOCRIT 34.6 % (36-48); HEMOGLOBIN 11.4 g/dL (12.0-16.0); LYMPHOCYTES # (AUTO) 1.9 K/uL (1.0-5.5); MEAN CORPUSCULAR HEMOGLOBIN 31 pg (27-31); MEAN CORPUSCULAR HGB CONC 33 % (32-36); MEAN CORPUSCULAR VOLUME 95 fL (79.0-98.0); MONOCYTES # (AUTO) 0.6 K/uL (0.0-1.0); MONOCYTES % (AUTO) 6.6 % (1.7-9.3); NEUTROPHILS # (AUTO) 6.7 K/uL (1.8-7.7); NEUTROPHILS % (AUTO) 71.7 % (40.0-70.0); PLATELET COUNT (AUTO) 178 K/uL (130-430); RED BLOOD CELL COUNT(AUTO) 3.65 MIL/uL (4.2-6.2); RED CELL DISTRIBUTION WIDTH 15.3 % (9.0-15.0); WHITE BLOOD COUNT (AUTO) 9.3 K/uL (4.8-10.8)
--- NOTE | 2019-07-25 11:32 | NUR ---
Medicated the pt with Xanax 0.5mg per Md order. Will reassess.
[2019-07-25 11:45] LABS: ANION GAP 2 (5-15); CALCIUM 9.8 mg/dL (8.4-11.0); CHLORIDE 101 mmol/L (98-107); CREATININE 2.45 mg/dL (0.55-1.30); GLUCOSE 271 mg/dL (70-99); POTASSIUM 4.7 mmol/L (3.5-5.1); SODIUM SERUM 136 mmol/L (136-145); UREA NITROGEN, BLOOD 51 mg/dL (8-21)
[2019-07-25 11:47] LABS: PROTHROMBIN TIME 10.1 SECS (9.5-12.5)
[2019-07-25 11:50] LABS: ALANINE AMINOTRANSFERASE 11 U/L (12-78); ALBUMIN 3.4 g/dL (3.4-4.8); ASPARTATE AMINOTRANSFERASE 18 U/L (10-37); TOTAL BILIRUBIN 0.5 mg/dL (0.0-1.0)
--- NOTE | 2019-07-25 13:40 | NUR ---
Patient given written and verbal discharge instructions and verbalizes understanding. ER MD discussed with patient the results and treatment provided. Patient in stable condition. ID arm band removed. Rx of Ativan 1mg given. Patient educated on pain management and to follow up with PMD. Pain Scale 0/10. Opportunity for questions provided and answered. Medication side effect fact sheet provided.
[2019-07-25 13:43] VITALS: BP_SYST 154
== END 2019-07-25 13:40 | disposition home or self-care (01) ==
LOC: SED 10:33
DX: R07.89 Other chest pain (principal); I13.0 Hypertensive heart and chronic kidney disease with heart failure and stage 1 through stage 4 chronic kidney disease, or unspecified chronic kidney disease; E11.22 Type 2 diabetes mellitus with diabetic chronic kidney disease; N18.9 Chronic kidney disease, unspecified; I50.9 Heart failure, unspecified; G20 Parkinson's disease; Z79.899 Other long term (current) drug therapy
CPT/HCPCS: 36415; 71045; 80053; 83880; 84484; 85025; 85610-TC; 85730-TC; 99284

== ENCOUNTER 2019-12-22 10:57 | Emergency (ER) | payer OTHER, MEDICAID ==
[~2019-12-22] VITALS: Ht 154.9 cm; Wt 75.7 kg
[2019-12-22 11:40] VITALS: BP_SYST 142
[2019-12-22 12:42] LABS: ANION GAP 4 (5-15); CALCIUM 9.3 mg/dL (8.4-11.0); CHLORIDE 99 mmol/L (98-107); CREATININE 2.35 mg/dL (0.55-1.30); GLUCOSE 204 mg/dL (70-99); POTASSIUM 4.2 mmol/L (3.5-5.1); SODIUM SERUM 134 mmol/L (136-145); UREA NITROGEN, BLOOD 41 mg/dL (8-21)
[2019-12-22 12:44] LABS: BASOPHILS % (AUTO) 0.4 % (0.0-2.0); EOSINOPHILS # (AUTO) 0.1 K/uL (0.0-0.4); EOSINOPHILS % (AUTO) 0.8 % (0.0-4.0); HEMATOCRIT 32.9 % (36-48); HEMOGLOBIN 10.7 g/dL (12.0-16.0); LYMPHOCYTES # (AUTO) 1.6 K/uL (1.0-5.5); LYMPHOCYTES % (AUTO) 14.8 % (20.5-51.5); MEAN CORPUSCULAR HEMOGLOBIN 32 pg (27-31); MEAN CORPUSCULAR HGB CONC 33 % (32-36); MEAN CORPUSCULAR VOLUME 98 fL (79.0-98.0); MONOCYTES # (AUTO) 0.9 K/uL (0.0-1.0); MONOCYTES % (AUTO) 8.5 % (1.7-9.3); NEUTROPHILS # (AUTO) 8.2 K/uL (1.8-7.7); NEUTROPHILS % (AUTO) 75.5 % (40.0-70.0); PLATELET COUNT (AUTO) 221 K/uL (130-430); RED BLOOD CELL COUNT(AUTO) 3.35 MIL/uL (4.2-6.2); RED CELL DISTRIBUTION WIDTH 13.6 % (9.0-15.0); WHITE BLOOD COUNT (AUTO) 10.9 K/uL (4.8-10.8)
[2019-12-22 12:47] LABS: ALANINE AMINOTRANSFERASE 9 U/L (12-78); ASPARTATE AMINOTRANSFERASE 15 U/L (10-37); TOTAL BILIRUBIN 0.5 mg/dL (0.0-1.0)
[2019-12-22 13:55] VITALS: BP_SYST 142
== END 2019-12-22 13:55 | disposition home or self-care (01) ==
LOC: SED 10:57
DX: S46.912A Strain of unspecified muscle, fascia and tendon at shoulder and upper arm level, left arm, initial encounter (principal); R53.1 Weakness; I11.0 Hypertensive heart disease with heart failure; I50.9 Heart failure, unspecified; E11.9 Type 2 diabetes mellitus without complications; E78.00 Pure hypercholesterolemia, unspecified; Z79.4 Long term (current) use of insulin; Z79.899 Other long term (current) drug therapy; W18.39XA Other fall on same level, initial encounter; Y93.89 Activity, other specified; Y92.89 Other specified places as the place of occurrence of the external cause; Y99.8 Other external cause status
CPT/HCPCS: 36415; 71045; 73030; 80053; 83605; 84484; 85025; 93005; 99285

== ENCOUNTER 2020-01-01 11:44 | Inpatient (IN) | payer OTHER, MEDICAID ==
[~2020-01-01] VITALS: Ht 154.9 cm; Wt 79.8 kg
[2020-01-01 11:57] VITALS: BP_SYST 147
[2020-01-01] MEDS ORDERED: cefTRIAXone 1 GM IVPB PREMIX 50 ML IV ONE (12:15)
[2020-01-01 12:50] LABS: BASOPHILS % (AUTO) 0.3 % (0.0-2.0); EOSINOPHILS # (AUTO) 0.2 K/uL (0.0-0.4); EOSINOPHILS % (AUTO) 2.2 % (0.0-4.0); HEMATOCRIT 32.1 % (36-48); HEMOGLOBIN 10.7 g/dL (12.0-16.0); LYMPHOCYTES # (AUTO) 1.1 K/uL (1.0-5.5); LYMPHOCYTES % (AUTO) 13.1 % (20.5-51.5); MEAN CORPUSCULAR HEMOGLOBIN 32 pg (27-31); MEAN CORPUSCULAR HGB CONC 33 % (32-36); MEAN CORPUSCULAR VOLUME 96 fL (79.0-98.0); MONOCYTES # (AUTO) 0.6 K/uL (0.0-1.0); MONOCYTES % (AUTO) 7.2 % (1.7-9.3); NEUTROPHILS # (AUTO) 6.5 K/uL (1.8-7.7); NEUTROPHILS % (AUTO) 77.2 % (40.0-70.0); PLATELET COUNT (AUTO) 243 K/uL (130-430); RED BLOOD CELL COUNT(AUTO) 3.34 MIL/uL (4.2-6.2); RED CELL DISTRIBUTION WIDTH 13.9 % (9.0-15.0); WHITE BLOOD COUNT (AUTO) 8.4 K/uL (4.8-10.8)
[2020-01-01 12:51] LABS: ANION GAP 6 (5-15); CALCIUM 9.3 mg/dL (8.4-11.0); CHLORIDE 102 mmol/L (98-107); CREATININE 2.16 mg/dL (0.55-1.30); GLUCOSE 195 mg/dL (70-99); SODIUM SERUM 139 mmol/L (136-145); UREA NITROGEN, BLOOD 43 mg/dL (8-21)
[2020-01-01 12:57] LABS: ALANINE AMINOTRANSFERASE 13 U/L (12-78); ALBUMIN 2.9 g/dL (3.4-4.8); ASPARTATE AMINOTRANSFERASE 20 U/L (10-37); TOTAL BILIRUBIN 0.3 mg/dL (0.0-1.0)
[2020-01-01 13:25] LABS: BILIRUBIN,URINE NEGATIVE (NEGATIVE); CLARITY/URINE CLEAR (CLEAR); COLOR,URINE YELLOW (YELLOW); GLUCOSE,URINE NEGATIVE (NEGATIVE); KETONES,URINE NEGATIVE (NEGATIVE); LEUKOCYTE ESTERASE ,URINE NEGATIVE (NEGATIVE); NITRITE, URINE NEGATIVE (NEGATIVE); PROTEIN URINE NEGATIVE (NEGATIVE); UROBILINOGEN,URINE 0.2 (0.2-1.0)
[2020-01-01 13:26] LABS: BLOOD, URINE TRACE (NEGATIVE)
[2020-01-01] MEDS ORDERED: VITD2000 PO (13:32)
[2020-01-01] MEDS ORDERED: SORB1SOL2 MC (13:32)
[2020-01-01] MEDS ORDERED: ROPI0.252 PO (13:32)
[2020-01-01] MEDS ORDERED: OMEG1CAP75 PO (13:32)
[2020-01-01] MEDS ORDERED: FURO-149 PO (13:32)
[2020-01-01] MEDS ORDERED: [UNRECOGNIZED DRUG - OTHER] SQ (13:34)
[2020-01-01 13:41] LABS: BACTERIA,URINE FEW /HPF (None Seen); WBC,URINE 0-3 /HPF (0-3)
[2020-01-01 16:24] VITALS: BP_SYST 165
[2020-01-01 16:36] VITALS: BP_SYST 165
[2020-01-01] MEDS ORDERED: LevALBUTEROL HCL 1.25 MG/0.5 ML *CONC.* VIAL.NEB (XOPENEX CONC.) INH PRN (17:30)
[2020-01-01 20:10] VITALS: BP_SYST 149
[2020-01-01] MEDS: 0.45% NACL 1,000 ML IV SCH (21:36)
[2020-01-01] MEDS: AZITHROMYCIN 500 MG in NS 250 ML IV SCH (21:36)
[2020-01-01] MEDS: cefTRIAXone 1 GM in D5W 50 ML IV SCH (21:48)
[2020-01-01] MEDS: OMEGA-3/DHA/EPA/FISH OIL 1 GM CAPSULE PO SCH (21:49)
[2020-01-01] MEDS: PREGABALIN 75 MG CAPSULE (LYRICA) PO SCH (21:49)
[2020-01-01] MEDS: CARBIDOPA/LEVODOPA 25/100 MG TABLET PO SCH (21:49)
[2020-01-01] MEDS: CALCIUM CARBONATE/VITAMIN D3 1 TAB TABLET PO SCH (21:49)
[2020-01-01] MEDS: roPINIRole HCL 0.25 MG ( REQUIP )TABLET PO SCH (21:50)
[2020-01-01] MEDS: INSULIN REGULAR, HUMAN 100 UNITS/ML, 10 ML VIAL (humuLIN R) SUBCUT PRN (22:01)
[2020-01-01] MEDS: LevALBUTEROL HCL 1.25 MG/0.5 ML *CONC.* VIAL.NEB (XOPENEX CONC.) INH SCH (23:48)
[2020-01-02 00:10] VITALS: BP_SYST 125
[2020-01-02] MEDS: BUDESONIDE 0.5 MG/2 ML AMPUL.NEB INH SCH ×2 (07:25→19:43)
[2020-01-02] MEDS: LevALBUTEROL HCL 1.25 MG/0.5 ML *CONC.* VIAL.NEB (XOPENEX CONC.) INH SCH ×3 (07:25→23:28)
[2020-01-02 07:40] LABS: BASOPHILS % (AUTO) 0.6 % (0.0-2.0); EOSINOPHILS # (AUTO) 0.2 K/uL (0.0-0.4); EOSINOPHILS % (AUTO) 3.6 % (0.0-4.0); HEMOGLOBIN 10.3 g/dL (12.0-16.0); LYMPHOCYTES # (AUTO) 1.1 K/uL (1.0-5.5); LYMPHOCYTES % (AUTO) 20.3 % (20.5-51.5); MEAN CORPUSCULAR HEMOGLOBIN 32 pg (27-31); MEAN CORPUSCULAR HGB CONC 33 % (32-36); MEAN CORPUSCULAR VOLUME 97 fL (79.0-98.0); MONOCYTES # (AUTO) 0.7 K/uL (0.0-1.0); MONOCYTES % (AUTO) 13.2 % (1.7-9.3); NEUTROPHILS # (AUTO) 3.5 K/uL (1.8-7.7); NEUTROPHILS % (AUTO) 62.3 % (40.0-70.0); PLATELET COUNT (AUTO) 213 K/uL (130-430); RED BLOOD CELL COUNT(AUTO) 3.22 MIL/uL (4.2-6.2); RED CELL DISTRIBUTION WIDTH 13.7 % (9.0-15.0); WHITE BLOOD COUNT (AUTO) 5.5 K/uL (4.8-10.8)
[2020-01-02 07:49] LABS: ANION GAP 5 (5-15); CALCIUM 8.9 mg/dL (8.4-11.0); CHLORIDE 101 mmol/L (98-107); CREATININE 2.11 mg/dL (0.55-1.30); GLUCOSE 166 mg/dL (70-99); POTASSIUM 4.1 mmol/L (3.5-5.1); SODIUM SERUM 138 mmol/L (136-145); UREA NITROGEN, BLOOD 37 mg/dL (8-21)
[2020-01-02 08:00] VITALS: BP_SYST 139
[2020-01-02] MEDS: NEPHROVITE, (FOLIC ACID/VITAMIN B COMP W-C 1 TAB) PO SCH (08:59)
[2020-01-02] MEDS: CITALOPRAM HYDROBROMIDE 20 MG TABLET PO SCH (09:00)
[2020-01-02] MEDS ORDERED: FLUTICASONE FUROATE 200 MCG INH SCH (09:00)
[2020-01-02] MEDS ORDERED: SODIUM POLYSTYRENE SULFONATE 15 GM/60 ML UDBTL PO SCH (09:00)
[2020-01-02] MEDS ORDERED: FOLIC ACID 1 MG TABLET PO SCH (09:00)
[2020-01-02] MEDS: FUROSEMIDE 40 MG TABLET PO SCH (09:03)
[2020-01-02] MEDS: CALCIUM CARBONATE/VITAMIN D3 1 TAB TABLET PO SCH ×2 (09:04→20:33)
[2020-01-02] MEDS: CHOLECALCIFEROL (VITAMIN D3) 2,000 UNIT TABLET PO SCH (09:05)
[2020-01-02] MEDS: CARBIDOPA/LEVODOPA 25/100 MG TABLET PO SCH ×4 (09:05→20:33)
[2020-01-02] MEDS: roPINIRole HCL 0.25 MG ( REQUIP )TABLET PO SCH ×2 (09:05→20:33)
[2020-01-02] MEDS: PREGABALIN 75 MG CAPSULE (LYRICA) PO SCH ×2 (09:06→20:33)
[2020-01-02] MEDS: FERROUS SULFATE 325 MG TABLET.DR PO SCH (09:06)
[2020-01-02] MEDS: OMEGA-3/DHA/EPA/FISH OIL 1 GM CAPSULE PO SCH ×2 (09:07→20:33)
[2020-01-02] MEDS: SORBITOL 70% SOLUTION, 30 ML UDBTL MC SCH (09:26)
[2020-01-02 12:00] VITALS: BP_SYST 107
[2020-01-02] MEDS: INSULIN REGULAR, HUMAN 100 UNITS/ML, 10 ML VIAL (humuLIN R) SUBCUT PRN ×3 (12:47→20:41)
[2020-01-02] MEDS: 0.45% NACL 1,000 ML IV SCH (12:55)
[2020-01-02 16:00] VITALS: BP_SYST 120
[2020-01-02] MEDS: AZITHROMYCIN 500 MG in NS 250 ML IV SCH (17:21)
[2020-01-02] MEDS: cefTRIAXone 1 GM in D5W 50 ML IV SCH (20:32)
[2020-01-03 00:11] VITALS: BP_SYST 142
[2020-01-03] MEDS: 0.45% NACL 1,000 ML IV SCH (00:20)
[2020-01-03] MEDS: INSULIN REGULAR, HUMAN 100 UNITS/ML, 10 ML VIAL (humuLIN R) SUBCUT PRN ×4 (06:25→21:42)
[2020-01-03] MEDS: LevALBUTEROL HCL 1.25 MG/0.5 ML *CONC.* VIAL.NEB (XOPENEX CONC.) INH SCH ×3 (07:15→19:54)
[2020-01-03] MEDS: BUDESONIDE 0.5 MG/2 ML AMPUL.NEB INH SCH ×2 (07:26→19:54)
[2020-01-03 08:45] VITALS: BP_SYST 126
[2020-01-03] MEDS: CALCIUM CARBONATE/VITAMIN D3 1 TAB TABLET PO SCH ×2 (08:58→20:59)
[2020-01-03] MEDS: OMEGA-3/DHA/EPA/FISH OIL 1 GM CAPSULE PO SCH ×2 (08:58→20:59)
[2020-01-03] MEDS: NEPHROVITE, (FOLIC ACID/VITAMIN B COMP W-C 1 TAB) PO SCH (08:58)
[2020-01-03] MEDS: CARBIDOPA/LEVODOPA 25/100 MG TABLET PO SCH ×3 (08:58→20:59)
[2020-01-03] MEDS: CITALOPRAM HYDROBROMIDE 20 MG TABLET PO SCH (08:58)
[2020-01-03] MEDS: FERROUS SULFATE 325 MG TABLET.DR PO SCH (08:58)
[2020-01-03] MEDS: PREGABALIN 75 MG CAPSULE (LYRICA) PO SCH ×2 (08:58→20:59)
[2020-01-03] MEDS: roPINIRole HCL 0.25 MG ( REQUIP )TABLET PO SCH ×2 (08:58→20:59)
[2020-01-03] MEDS: CHOLECALCIFEROL (VITAMIN D3) 2,000 UNIT TABLET PO SCH (08:59)
[2020-01-03] MEDS: SORBITOL 70% SOLUTION, 30 ML UDBTL MC SCH (08:59)
[2020-01-03] MEDS: FUROSEMIDE 40 MG TABLET PO SCH (08:59)
[2020-01-03 12:00] VITALS: BP_SYST 125
[2020-01-03 17:07] VITALS: BP_SYST 125
[2020-01-03] MEDS: AZITHROMYCIN 500 MG in NS 250 ML IV SCH (17:13)
[2020-01-03 20:00] VITALS: BP_SYST 128
[2020-01-03] MEDS: cefTRIAXone 1 GM in D5W 50 ML IV SCH (20:59)
[2020-01-04] MEDS: 0.45% NACL 1,000 ML IV SCH (00:05)
[2020-01-04] MEDS: INSULIN REGULAR, HUMAN 100 UNITS/ML, 10 ML VIAL (humuLIN R) SUBCUT PRN ×4 (06:11→20:54)
[2020-01-04] MEDS: BUDESONIDE 0.5 MG/2 ML AMPUL.NEB INH SCH ×2 (07:44→20:21)
[2020-01-04] MEDS: LevALBUTEROL HCL 1.25 MG/0.5 ML *CONC.* VIAL.NEB (XOPENEX CONC.) INH SCH ×3 (07:44→19:45)
[2020-01-04 08:00] VITALS: BP_SYST 123
[2020-01-04] MEDS: OMEGA-3/DHA/EPA/FISH OIL 1 GM CAPSULE PO SCH ×2 (09:38→20:49)
[2020-01-04] MEDS: CARBIDOPA/LEVODOPA 25/100 MG TABLET PO SCH ×4 (09:38→20:49)
[2020-01-04] MEDS: CALCIUM CARBONATE/VITAMIN D3 1 TAB TABLET PO SCH ×2 (09:38→20:49)
[2020-01-04] MEDS: roPINIRole HCL 0.25 MG ( REQUIP )TABLET PO SCH ×2 (09:38→20:49)
[2020-01-04] MEDS: PREGABALIN 75 MG CAPSULE (LYRICA) PO SCH ×2 (09:38→20:49)
[2020-01-04] MEDS: NEPHROVITE, (FOLIC ACID/VITAMIN B COMP W-C 1 TAB) PO SCH (09:38)
[2020-01-04] MEDS: FUROSEMIDE 40 MG TABLET PO SCH (09:38)
[2020-01-04] MEDS: CHOLECALCIFEROL (VITAMIN D3) 2,000 UNIT TABLET PO SCH (09:39)
[2020-01-04] MEDS: CITALOPRAM HYDROBROMIDE 20 MG TABLET PO SCH (09:39)
[2020-01-04] MEDS: FERROUS SULFATE 325 MG TABLET.DR PO SCH (09:39)
[2020-01-04] MEDS: SORBITOL 70% SOLUTION, 30 ML UDBTL MC SCH (09:46)
[2020-01-04 09:55] VITALS: BP_SYST 128
[2020-01-04 12:36] VITALS: BP_SYST 128
[2020-01-04 16:35] VITALS: BP_SYST 123
[2020-01-04] MEDS: AZITHROMYCIN 500 MG in NS 250 ML IV SCH (18:06)
[2020-01-04] MEDS ORDERED: PREDNISONE 20 MG TABLET PO ONE (19:30)
[2020-01-04 19:35] VITALS: BP_SYST 127
[2020-01-04] MEDS: cefTRIAXone 1 GM in D5W 50 ML IV SCH (20:25)
[2020-01-04] MEDS: PREDNISONE 20 MG TABLET PO SCH (20:25)
[2020-01-05 00:25] VITALS: BP_SYST 114
[2020-01-05] MEDS: LevALBUTEROL HCL 1.25 MG/0.5 ML *CONC.* VIAL.NEB (XOPENEX CONC.) INH SCH ×4 (01:08→19:20)
[2020-01-05] MEDS: INSULIN REGULAR, HUMAN 100 UNITS/ML, 10 ML VIAL (humuLIN R) SUBCUT PRN ×4 (06:45→20:59)
[2020-01-05 06:52] LABS: BASOPHILS % (AUTO) 0.2 % (0.0-2.0); HEMATOCRIT 35.3 % (36-48); HEMOGLOBIN 11.4 g/dL (12.0-16.0); LYMPHOCYTES # (AUTO) 0.7 K/uL (1.0-5.5); LYMPHOCYTES % (AUTO) 8.7 % (20.5-51.5); MEAN CORPUSCULAR HEMOGLOBIN 32 pg (27-31); MEAN CORPUSCULAR HGB CONC 32 % (32-36); MEAN CORPUSCULAR VOLUME 99 fL (79.0-98.0); MONOCYTES # (AUTO) 0.1 K/uL (0.0-1.0); MONOCYTES % (AUTO) 1.1 % (1.7-9.3); NEUTROPHILS # (AUTO) 6.9 K/uL (1.8-7.7); PLATELET COUNT (AUTO) 197 K/uL (130-430); RED BLOOD CELL COUNT(AUTO) 3.58 MIL/uL (4.2-6.2); RED CELL DISTRIBUTION WIDTH 14.5 % (9.0-15.0); WHITE BLOOD COUNT (AUTO) 7.6 K/uL (4.8-10.8)
[2020-01-05 07:01] LABS: ANION GAP 9 (5-15); CALCIUM 9.3 mg/dL (8.4-11.0); CHLORIDE 100 mmol/L (98-107); POTASSIUM 5.2 mmol/L (3.5-5.1); SODIUM SERUM 136 mmol/L (136-145); UREA NITROGEN, BLOOD 54 mg/dL (8-21)
[2020-01-05 07:10] LABS: GLUCOSE 464 mg/dL (70-99)
[2020-01-05] MEDS: BUDESONIDE 0.5 MG/2 ML AMPUL.NEB INH SCH ×2 (07:15→19:32)
[2020-01-05 08:00] VITALS: BP_SYST 142
[2020-01-05] MEDS: roPINIRole HCL 0.25 MG ( REQUIP )TABLET PO SCH ×2 (10:18→20:55)
[2020-01-05] MEDS: CALCIUM CARBONATE/VITAMIN D3 1 TAB TABLET PO SCH ×2 (10:18→20:55)
[2020-01-05] MEDS: PREGABALIN 75 MG CAPSULE (LYRICA) PO SCH ×2 (10:18→20:55)
[2020-01-05] MEDS: OMEGA-3/DHA/EPA/FISH OIL 1 GM CAPSULE PO SCH ×2 (10:18→20:55)
[2020-01-05] MEDS: CHOLECALCIFEROL (VITAMIN D3) 2,000 UNIT TABLET PO SCH (10:18)
[2020-01-05] MEDS: CARBIDOPA/LEVODOPA 25/100 MG TABLET PO SCH ×4 (10:18→20:55)
[2020-01-05] MEDS: CITALOPRAM HYDROBROMIDE 20 MG TABLET PO SCH (10:19)
[2020-01-05] MEDS: FERROUS SULFATE 325 MG TABLET.DR PO SCH (10:19)
[2020-01-05] MEDS: FUROSEMIDE 40 MG TABLET PO SCH (10:19)
[2020-01-05] MEDS: PREDNISONE 20 MG TABLET PO SCH (10:19)
[2020-01-05] MEDS: NEPHROVITE, (FOLIC ACID/VITAMIN B COMP W-C 1 TAB) PO SCH (10:19)
[2020-01-05] MEDS: SORBITOL 70% SOLUTION, 30 ML UDBTL MC SCH (10:23)
[2020-01-05] MEDS ORDERED: PROMETHAZINE HCL/CODEINE 6.25-10 mg/5 mL UDC PO ONE (11:45)
[2020-01-05] MEDS ORDERED: INSULIN REGULAR, HUMAN 100 UNITS/ML, 10 ML VIAL IVP ONE (11:45)
[2020-01-05 12:00] VITALS: BP_SYST 119
[2020-01-05] MEDS: PROMETHAZINE HCL/CODEINE 6.25-10 mg/5 mL UDC PO SCH ×2 (13:30→22:00)
[2020-01-05 15:11] VITALS: BP_SYST 141
[2020-01-05] MEDS: AZITHROMYCIN 500 MG in NS 250 ML IV SCH (17:18)
[2020-01-05 20:00] VITALS: BP_SYST 118
[2020-01-05] MEDS: cefTRIAXone 1 GM in D5W 50 ML IV SCH (20:49)
[2020-01-05] MEDS: INSULIN GLARGINE 100 UNITS/ML 10 ML VIAL SUBCUT SCH (21:01)
[2020-01-06 00:19] VITALS: BP_SYST 108
[2020-01-06] MEDS: LevALBUTEROL HCL 1.25 MG/0.5 ML *CONC.* VIAL.NEB (XOPENEX CONC.) INH SCH ×4 (00:45→19:09)
[2020-01-06] MEDS: INSULIN REGULAR, HUMAN 100 UNITS/ML, 10 ML VIAL (humuLIN R) SUBCUT PRN ×4 (06:26→22:38)
[2020-01-06] MEDS: PROMETHAZINE HCL/CODEINE 6.25-10 mg/5 mL UDC PO SCH ×2 (06:54→14:00)
[2020-01-06] MEDS: BUDESONIDE 0.5 MG/2 ML AMPUL.NEB INH SCH ×2 (07:21→19:19)
[2020-01-06 07:27] LABS: ANION GAP 5 (5-15); CALCIUM 9.4 mg/dL (8.4-11.0); CHLORIDE 99 mmol/L (98-107); CREATININE 2.85 mg/dL (0.55-1.30); GLUCOSE 348 mg/dL (70-99); SODIUM SERUM 133 mmol/L (136-145); UREA NITROGEN, BLOOD 70 mg/dL (8-21)
[2020-01-06] MEDS: INSULIN GLARGINE 100 UNITS/ML 10 ML VIAL SUBCUT SCH ×2 (09:09→22:39)
[2020-01-06] MEDS: FERROUS SULFATE 325 MG TABLET.DR PO SCH (09:10)
[2020-01-06] MEDS: NEPHROVITE, (FOLIC ACID/VITAMIN B COMP W-C 1 TAB) PO SCH (09:10)
[2020-01-06] MEDS: OMEGA-3/DHA/EPA/FISH OIL 1 GM CAPSULE PO SCH ×2 (09:10→22:34)
[2020-01-06] MEDS: PREGABALIN 75 MG CAPSULE (LYRICA) PO SCH ×2 (09:10→22:35)
[2020-01-06] MEDS: CALCIUM CARBONATE/VITAMIN D3 1 TAB TABLET PO SCH ×2 (09:10→22:35)
[2020-01-06] MEDS: roPINIRole HCL 0.25 MG ( REQUIP )TABLET PO SCH ×2 (09:10→22:34)
[2020-01-06] MEDS: PREDNISONE 20 MG TABLET PO SCH (09:10)
[2020-01-06] MEDS: CHOLECALCIFEROL (VITAMIN D3) 2,000 UNIT TABLET PO SCH (09:11)
[2020-01-06] MEDS: CARBIDOPA/LEVODOPA 25/100 MG TABLET PO SCH ×4 (09:11→22:35)
[2020-01-06] MEDS: FUROSEMIDE 40 MG TABLET PO SCH (09:12)
[2020-01-06] MEDS: SORBITOL 70% SOLUTION, 30 ML UDBTL MC SCH (09:13)
[2020-01-06] MEDS: CITALOPRAM HYDROBROMIDE 20 MG TABLET PO SCH (09:13)
[2020-01-06 11:12] VITALS: BP_SYST 130
[2020-01-06 15:27] VITALS: BP_SYST 130
[2020-01-06] MEDS: MONTELUKAST 10 MG TABLET PO SCH (17:39)
[2020-01-06 20:00] VITALS: BP_SYST 154
[2020-01-06] MEDS ORDERED: guaiFENesin 200 MG/CODEINE 20 MG/ 10 ML UDC PO PRN (20:00)
[2020-01-06] MEDS: cefTRIAXone 1 GM in D5W 50 ML IV SCH (22:28)
[2020-01-07] VITALS: BP_SYST 143
[2020-01-07] MEDS: LevALBUTEROL HCL 1.25 MG/0.5 ML *CONC.* VIAL.NEB (XOPENEX CONC.) INH SCH ×4 (01:16→19:39)
[2020-01-07] MEDS: INSULIN REGULAR, HUMAN 100 UNITS/ML, 10 ML VIAL (humuLIN R) SUBCUT PRN ×4 (06:14→20:34)
[2020-01-07 06:37] LABS: CALCIUM 9.3 mg/dL (8.4-11.0); CHLORIDE 99 mmol/L (98-107); CREATININE 2.62 mg/dL (0.55-1.30); GLUCOSE 261 mg/dL (70-99); POTASSIUM 5.2 mmol/L (3.5-5.1); UREA NITROGEN, BLOOD 76 mg/dL (8-21)
[2020-01-07 06:49] LABS: ANION GAP 4 (5-15); SODIUM SERUM 134 mmol/L (136-145)
[2020-01-07] MEDS ORDERED: NACL 0.9% 1,000 ML IV SCH (06:51)
[2020-01-07] MEDS: BUDESONIDE 0.5 MG/2 ML AMPUL.NEB INH SCH ×2 (07:57→19:56)
[2020-01-07 08:14] VITALS: BP_SYST 134
[2020-01-07] MEDS: CARBIDOPA/LEVODOPA 25/100 MG TABLET PO SCH ×4 (08:48→20:20)
[2020-01-07] MEDS: CITALOPRAM HYDROBROMIDE 20 MG TABLET PO SCH (08:49)
[2020-01-07] MEDS: NEPHROVITE, (FOLIC ACID/VITAMIN B COMP W-C 1 TAB) PO SCH (08:49)
[2020-01-07] MEDS: PREDNISONE 20 MG TABLET PO SCH (08:49)
[2020-01-07] MEDS: roPINIRole HCL 0.25 MG ( REQUIP )TABLET PO SCH ×2 (08:49→20:20)
[2020-01-07] MEDS: PREGABALIN 75 MG CAPSULE (LYRICA) PO SCH ×2 (08:49→20:20)
[2020-01-07] MEDS: FERROUS SULFATE 325 MG TABLET.DR PO SCH (08:49)
[2020-01-07] MEDS: CALCIUM CARBONATE/VITAMIN D3 1 TAB TABLET PO SCH ×2 (08:49→20:20)
[2020-01-07] MEDS: CHOLECALCIFEROL (VITAMIN D3) 2,000 UNIT TABLET PO SCH (08:49)
[2020-01-07] MEDS: OMEGA-3/DHA/EPA/FISH OIL 1 GM CAPSULE PO SCH ×2 (08:49→20:20)
[2020-01-07] MEDS: INSULIN GLARGINE 100 UNITS/ML 10 ML VIAL SUBCUT SCH ×2 (09:01→20:35)
[2020-01-07] MEDS: SORBITOL 70% SOLUTION, 30 ML UDBTL MC SCH (09:24)
[2020-01-07 10:11] VITALS: BP_SYST 134
[2020-01-07 12:00] VITALS: BP_SYST 132
[2020-01-07] MEDS ORDERED: BISACODYL 10 MG/SUPPOSITORY RC ONE (15:00)
[2020-01-07] MEDS ORDERED: MINERAL OIL 133 ML ENEMA RC ONE (15:00)
[2020-01-07 16:00] VITALS: BP_SYST 121
[2020-01-07] MEDS: MONTELUKAST 10 MG TABLET PO SCH (18:08)
[2020-01-07 20:00] VITALS: BP_SYST 153
[2020-01-07 20:05] LABS: BILIRUBIN,URINE NEGATIVE (NEGATIVE); BLOOD, URINE NEGATIVE (NEGATIVE); CLARITY/URINE CLEAR (CLEAR); COLOR,URINE YELLOW (YELLOW); GLUCOSE,URINE NEGATIVE (NEGATIVE); KETONES,URINE NEGATIVE (NEGATIVE); LEUKOCYTE ESTERASE ,URINE NEGATIVE (NEGATIVE); NITRITE, URINE NEGATIVE (NEGATIVE); PH,URINE 5.5 (5.0-8.0); PROTEIN URINE NEGATIVE (NEGATIVE); UROBILINOGEN,URINE 0.2 (0.2-1.0)
[2020-01-07] MEDS: cefTRIAXone 1 GM in D5W 50 ML IV SCH (20:20)
[2020-01-08] MEDS: LevALBUTEROL HCL 1.25 MG/0.5 ML *CONC.* VIAL.NEB (XOPENEX CONC.) INH SCH ×4 (01:04→19:50)
[2020-01-08 01:41] VITALS: BP_SYST 125
[2020-01-08] MEDS: INSULIN REGULAR, HUMAN 100 UNITS/ML, 10 ML VIAL (humuLIN R) SUBCUT PRN ×4 (06:42→21:59)
[2020-01-08 06:53] LABS: BASOPHILS % (AUTO) 0.4 % (0.0-2.0); EOSINOPHILS % (AUTO) 0.1 % (0.0-4.0); HEMATOCRIT 29.1 % (36-48); HEMOGLOBIN 9.5 g/dL (12.0-16.0); LYMPHOCYTES # (AUTO) 1.9 K/uL (1.0-5.5); LYMPHOCYTES % (AUTO) 19.7 % (20.5-51.5); MEAN CORPUSCULAR HEMOGLOBIN 32 pg (27-31); MEAN CORPUSCULAR HGB CONC 33 % (32-36); MEAN CORPUSCULAR VOLUME 98 fL (79.0-98.0); MONOCYTES # (AUTO) 0.5 K/uL (0.0-1.0); MONOCYTES % (AUTO) 5.2 % (1.7-9.3); NEUTROPHILS % (AUTO) 74.6 % (40.0-70.0); PLATELET COUNT (AUTO) 189 K/uL (130-430); RED BLOOD CELL COUNT(AUTO) 2.98 MIL/uL (4.2-6.2); RED CELL DISTRIBUTION WIDTH 14.1 % (9.0-15.0); WHITE BLOOD COUNT (AUTO) 9.4 K/uL (4.8-10.8)
[2020-01-08 07:06] LABS: ALBUMIN 2.3 g/dL (3.4-4.8); ASPARTATE AMINOTRANSFERASE 24 U/L (10-37); CALCIUM 8.8 mg/dL (8.4-11.0); CHLORIDE 104 mmol/L (98-107); CREATININE 2.58 mg/dL (0.55-1.30); GLUCOSE 205 mg/dL (70-99); POTASSIUM 5.7 mmol/L (3.5-5.1); SODIUM SERUM 138 mmol/L (136-145); TOTAL BILIRUBIN 0.3 mg/dL (0.0-1.0); UREA NITROGEN, BLOOD 74 mg/dL (8-21)
[2020-01-08 07:23] LABS: ALANINE AMINOTRANSFERASE 8 U/L (12-78)
[2020-01-08 07:28] LABS: ANION GAP < 3 (5-15)
[2020-01-08] MEDS: BUDESONIDE 0.5 MG/2 ML AMPUL.NEB INH SCH ×2 (07:33→19:52)
[2020-01-08 08:00] VITALS: BP_SYST 153
[2020-01-08] MEDS: CHOLECALCIFEROL (VITAMIN D3) 2,000 UNIT TABLET PO SCH (09:14)
[2020-01-08] MEDS: FERROUS SULFATE 325 MG TABLET.DR PO SCH (09:14)
[2020-01-08] MEDS: roPINIRole HCL 0.25 MG ( REQUIP )TABLET PO SCH ×2 (09:14→21:48)
[2020-01-08] MEDS: PREDNISONE 20 MG TABLET PO SCH (09:15)
[2020-01-08] MEDS: CALCIUM CARBONATE/VITAMIN D3 1 TAB TABLET PO SCH ×2 (09:15→21:48)
[2020-01-08] MEDS: NEPHROVITE, (FOLIC ACID/VITAMIN B COMP W-C 1 TAB) PO SCH (09:15)
[2020-01-08] MEDS: CARBIDOPA/LEVODOPA 25/100 MG TABLET PO SCH ×4 (09:15→21:47)
[2020-01-08] MEDS: CITALOPRAM HYDROBROMIDE 20 MG TABLET PO SCH (09:15)
[2020-01-08] MEDS: SORBITOL 70% SOLUTION, 30 ML UDBTL MC SCH (09:15)
[2020-01-08] MEDS: PREGABALIN 75 MG CAPSULE (LYRICA) PO SCH ×2 (09:16→21:47)
[2020-01-08] MEDS: INSULIN GLARGINE 100 UNITS/ML 10 ML VIAL SUBCUT SCH ×2 (09:29→21:59)
[2020-01-08] MEDS ORDERED: SODIUM POLYSTYRENE SULFONATE 15 GM/60 ML UDBTL PO ONE (09:45)
[2020-01-08 12:18] VITALS: BP_SYST 141
[2020-01-08] MEDS: OMEGA-3/DHA/EPA/FISH OIL 1 GM CAPSULE PO SCH ×2 (12:57→21:48)
[2020-01-08 16:53] VITALS: BP_SYST 145
[2020-01-08 20:05] VITALS: BP_SYST 142
[2020-01-09 00:13] VITALS: BP_SYST 168
[2020-01-09] MEDS: LevALBUTEROL HCL 1.25 MG/0.5 ML *CONC.* VIAL.NEB (XOPENEX CONC.) INH SCH ×3 (00:48→13:38)
[2020-01-09 04:00] VITALS: BP_SYST 154
[2020-01-09 06:44] LABS: BASOPHILS % (AUTO) 0.3 % (0.0-2.0); EOSINOPHILS % (AUTO) 0.3 % (0.0-4.0); HEMATOCRIT 31.7 % (36-48); HEMOGLOBIN 10.5 g/dL (12.0-16.0); LYMPHOCYTES # (AUTO) 2.2 K/uL (1.0-5.5); LYMPHOCYTES % (AUTO) 23.8 % (20.5-51.5); MEAN CORPUSCULAR HEMOGLOBIN 32 pg (27-31); MEAN CORPUSCULAR HGB CONC 33 % (32-36); MEAN CORPUSCULAR VOLUME 97 fL (79.0-98.0); MONOCYTES # (AUTO) 0.8 K/uL (0.0-1.0); MONOCYTES % (AUTO) 8.4 % (1.7-9.3); NEUTROPHILS # (AUTO) 6.3 K/uL (1.8-7.7); NEUTROPHILS % (AUTO) 67.2 % (40.0-70.0); PLATELET COUNT (AUTO) 187 K/uL (130-430); RED BLOOD CELL COUNT(AUTO) 3.25 MIL/uL (4.2-6.2); RED CELL DISTRIBUTION WIDTH 14.1 % (9.0-15.0); WHITE BLOOD COUNT (AUTO) 9.3 K/uL (4.8-10.8)
[2020-01-09] MEDS: BUDESONIDE 0.5 MG/2 ML AMPUL.NEB INH SCH (07:14)
[2020-01-09 07:21] LABS: ALANINE AMINOTRANSFERASE 10 U/L (12-78); ALBUMIN 2.5 g/dL (3.4-4.8); ANION GAP 5 (5-15); ASPARTATE AMINOTRANSFERASE 25 U/L (10-37); CALCIUM 9.1 mg/dL (8.4-11.0); CHLORIDE 103 mmol/L (98-107); GLUCOSE 123 mg/dL (70-99); POTASSIUM 3.7 mmol/L (3.5-5.1); SODIUM SERUM 144 mmol/L (136-145); TOTAL BILIRUBIN 0.3 mg/dL (0.0-1.0); UREA NITROGEN, BLOOD 62 mg/dL (8-21)
[2020-01-09 08:00] VITALS: BP_SYST 136
[2020-01-09] MEDS: CALCIUM CARBONATE/VITAMIN D3 1 TAB TABLET PO SCH (08:40)
[2020-01-09] MEDS: SORBITOL 70% SOLUTION, 30 ML UDBTL MC SCH (08:40)
[2020-01-09] MEDS: PREDNISONE 20 MG TABLET PO SCH (08:41)
[2020-01-09] MEDS: INSULIN GLARGINE 100 UNITS/ML 10 ML VIAL SUBCUT SCH (08:42)
[2020-01-09] MEDS: CHOLECALCIFEROL (VITAMIN D3) 2,000 UNIT TABLET PO SCH (08:43)
[2020-01-09] MEDS: NEPHROVITE, (FOLIC ACID/VITAMIN B COMP W-C 1 TAB) PO SCH (08:43)
[2020-01-09] MEDS: CITALOPRAM HYDROBROMIDE 20 MG TABLET PO SCH (08:43)
[2020-01-09] MEDS: OMEGA-3/DHA/EPA/FISH OIL 1 GM CAPSULE PO SCH (08:43)
[2020-01-09] MEDS: CARBIDOPA/LEVODOPA 25/100 MG TABLET PO SCH ×2 (08:43→13:00)
[2020-01-09] MEDS: FERROUS SULFATE 325 MG TABLET.DR PO SCH (08:43)
[2020-01-09] MEDS ORDERED: CARVEDILOL 6.25 MG TABLET (COREG) PO SCH (09:00)
[2020-01-09] MEDS: roPINIRole HCL 0.25 MG ( REQUIP )TABLET PO SCH (10:48)
[2020-01-09] MEDS: PREGABALIN 75 MG CAPSULE (LYRICA) PO SCH (10:48)
[2020-01-09] MEDS ORDERED: GLUCOSE 15 GM GEL (in 37.5 GM TUBE) PO PRN (11:30)
[2020-01-09] MEDS ORDERED: DEXTROSE 50%-WATER 50 ML DISP.SYRIN IVP PRN (11:30)
[2020-01-09] MEDS ORDERED: D5W 1,000 ML IV PRN (11:30)
[2020-01-09] MEDS: INSULIN REGULAR, HUMAN 100 UNITS/ML, 10 ML VIAL (humuLIN R) SUBCUT PRN (11:34)
[2020-01-09 12:04] VITALS: BP_SYST 138
[2020-01-09 12:47] VITALS: BP_SYST 138
== END 2020-01-09 14:20 | disposition home health service (06) | DRG 177 ==
LOC: SED 11:44 → STU 14:04 → SMU 01-03 16:00 → STU 01-04 15:16
PROVIDERS: ADMIT Family Medicine; ATTEND Family Medicine
DX: J15.6 Pneumonia due to other Gram-negative bacteria (principal); N17.0 Acute kidney failure with tubular necrosis; J45.901 Unspecified asthma with (acute) exacerbation; I13.0 Hypertensive heart and chronic kidney disease with heart failure and stage 1 through stage 4 chronic kidney disease, or unspecified chronic kidney disease; J96.10 Chronic respiratory failure, unspecified whether with hypoxia or hypercapnia; N18.9 Chronic kidney disease, unspecified; J45.909 Unspecified asthma, uncomplicated; E11.22 Type 2 diabetes mellitus with diabetic chronic kidney disease; D64.9 Anemia, unspecified; E03.9 Hypothyroidism, unspecified; G20 Parkinson's disease; K59.00 Constipation, unspecified; I50.9 Heart failure, unspecified; Z99.81 Dependence on supplemental oxygen; Z90.49 Acquired absence of other specified parts of digestive tract; Z79.899 Other long term (current) drug therapy
CPT/HCPCS: 36415; 36600; 71045; 76770; 80048; 80053; 81000-TC; 81003; 82803-TC; 82962; 83605; 83880; 85025; 87040-TC; 87086; 93005; 94640; 94760; 96365; 96368; 97110-GP; 97116-GP; 99285; G0378; J0456; J0696; J1815; J1956; J7030; J7050; J7060; J7512; J7612; J7626